=== PATIENT | female | born 1950 | race Caucasian/White ===

== ENCOUNTER 2020-09-19 17:44 | Inpatient (IN) ==
[2020-09-19] MEDS ORDERED: MoRPHine SULFATE 2 MG/ML CARP IV PRN (17:56)
[2020-09-19] MEDS ORDERED: SODIUM CHLORIDE 0.9% 1000ML 1,000 ML IV SCH (18:00)
--- NOTE | 2020-09-19 18:06 | Emergency Department Note ---
History of Present Illness General Chief complaint: Hip Pain Time Seen by Provider: 09/19/20 17:51 History of Present Illness 70-year-old female presents to the ED with a chief complaint of injury to her left hip. The patient states that she was getting up off of her chair and lost her balance causing her to fall onto her left hip. She suffered an abrasion to the left elbow. More significantly, she has a left hip injury with significant pain with any movement. She was transported here by EMS. The injury occurred just prior to arrival. Denies striking her head or loss of consciousness. She denies any other injuries. Symptoms are moderate. Pain is a 1 out of 10 when she is standing still. Home Medications Medication Instructions Recorded Confirmed Type albuterol sulfate 90 mcg/actuation 2 puff INHALATION .Q4-6H 09/19/20 09/19/20 History aerosol inhaler (Ventolin HFA) calcium polycarbophil 625 mg 625 mg PO DAILY 09/19/20 09/19/20 History tablet (FiberCon) ferrous sulfate 325 mg (65 mg 650 mg PO BID 09/19/20 09/19/20 History iron) tablet ibuprofen 200 mg tablet 200 mg PO Q6H PRN 09/19/20 09/19/20 History ipratropium 0.5 mg-albuterol 3 mg 3 ml INHALATION QID 09/19/20 09/19/20 History (2.5 mg base)/3 mL nebulization soln ipratropium 20 mcg-albuterol 100 1 puff INHALATION Q6H 09/19/20 09/19/20 History mcg/actuation mist for inhalation (Combivent Respimat) lisinopril 10 mg tablet 10 mg PO QAM 09/19/20 09/19/20 History lisinopril 5 mg tablet 5 mg PO QAM 09/19/20 09/19/20 History prednisone 5 mg tablet 5 mg PO QAM 09/19/20 09/19/20 History sertraline 100 mg tablet 200 mg PO QAM 09/19/20 09/19/20 History simvastatin 20 mg tablet 20 mg PO HS 09/19/20 09/19/20 History Allergies Allergy/AdvReac Type Severity Reaction Status Date / Time tomato Allergy Mild Mouth Unverified 09/19/20 19:14 Fuzziness and Burning Past Med/Surg History Social History Smoking Status: Current every day smoker Tobacco Type: Cigarettes Feels Safe at Home: Yes Review of Systems A total of 10 systems reviewed and were otherwise negative Physical Exam Vital Signs Vital Signs - 24 hr 09/19/20 18:13 09/19/20 18:43 09/19/20 19:00 Temperature 36.9 C Temperature Source Oral Pulse Rate 107 H 109 H Pulse Rate [Finger] 110 H Pulse Rate from SpO2 Sensor 109 H Respiratory Rate 18 18 20 Blood Pressure 234/139 H Blood Pressure [Left Arm] 221/137 H Blood Pressure Mean 170 Blood Pressure Mean [Left Arm] 165 Pulse Oximetry 95 93 94 Oxygen Delivery Method Room Air Room Air Sepsis Recent Fever Within 48 Hours No Sepsis New/Unexplained Change in Mental Status No Sepsis Action Taken by Nursing No Action Required CONSTITUTIONAL/VITAL SIGNS: Reviewed / noted above. GENERAL: Non-toxic in appearance. INTEGUMENTARY: Warm, dry, and Wanda. HEAD: Normocephalic. EYES: without scleral icterus or trauma. ENT/OROPHARYNX: clear and moist. LYMPHADENOPATHY/NECK: Is supple without lymphadenopathy or meningismus. RESPIRATORY: Clear to auscultation bilaterally. No increased work of breathing. CARDIOVASCULAR: Regular rate and rhythm. GI/ABDOMEN: Soft and nontender. No organomegaly or pulsatile mass. EXTREMITIES: Warm and well perfused. Shortening and external rotation noted to the left leg. Small abrasion to the left elbow. BACK: No CVA tenderness. NEUROLOGICAL: Intact without focal deficits. PSYCHIATRIC: normal affect. MUSCULOSKELETAL: Normally developed with good muscle tone. TRIAGE NURSING DOCUMENTATION REVIEWED. Course Administered Medications Sodium Chloride (Nss 1000ml) 1,000 mls @ 150 mls/hr IV .Q6H40M [facility] Stop: 09/20/20 00:39 Last Admin: 09/19/20 18:40 Dose: 150 mls/hr Documented by: [id number] Morphine Sulfate (Morphine Sulfate 2 Mg/Ml Carp) 2 mg IV Q1H PRN PRN Reason: Moderate Pain (Rating 3,4,5,6) Stop: 10/03/20 17:55 Last Admin: 09/19/20 18:39 Dose: 2 mg Documented by: [id number] Medical Decision Making Differential Diagnosis Differential includes close head injury, intracranial bleed, facial trauma, cervical spine trauma, chest and thoracic trauma, abdominal and intra-abdominal trauma, spine neurologic trauma, extremity trauma. Medical Records Attestation: I reviewed the patient's medical records. Home Medications Current Medication List: was personally reviewed by me Laboratory Data Attestation: I reviewed the patient's lab results. Result diagrams: 09/19/20 Unknown 09/19/20 Unknown Lab Results 09/19/20 09/19/20 09/19/20 Range/Units 18:26 18:26 18:40 WBC (4.8-10.8) K/uL RBC (4.2-5.4) M/uL Hgb (12.0-16.0) g/dL Hct (37-47) % MCV (80-100) fL MCH (25-34) pg MCHC (32-36) g/dL RDW Std Deviation (36.4-46.3) fL RDW Coeff of Ninfa (11.5-14.5) % Plt Count (130-400) K/uL MPV (7.4-10.4) fL Immature Gran % (Auto) % Neut % (Auto) % Lymph % (Auto) % [place] % (Auto) % Eos % (Auto) % Baso % (Auto) % Neut # (Auto) (1.4-6.5) K/uL Lymph # (Auto) (1.2-3.4) K/uL [place] # (Auto) (0.11-0.59) K/uL Eos # (Auto) (0-0.5) K/uL Baso # (Auto) (0-0.2) K/uL Immature Gran # (Auto) (0.00-0.02) K/uL PT (9.0-12.0) Seconds INR (0.9-1.1) APTT (21.0-31.0) Seconds PTT Ratio Sodium (136-145) mmol/L Potassium (3.5-5.1) mmol/L Chloride (98-107) mmol/L Carbon Dioxide (21-32) mmol/L Anion Gap (3-11) BUN (7-18) mg/dl Creatinine (0.6-1.2) mg/dl Est Cr Clr Drug Dosing ml/min Est GFR ( Amer) ml/min Est GFR (Non-Af Amer) ml/min BUN/Creatinine Ratio (10-20) Glucose (70-99) mg/dl Calcium (8.5-10.1) mg/dl Magnesium (1.8-2.4) mg/dl Total Bilirubin (0.2-1) mg/dl AST (15-37) U/L ALT (12-78) U/L Alkaline Phosphatase (45-117) U/L Total Protein (6.4-8.2) gm/dl Albumin (3.4-5.0) gm/dl Globulin (2.5-4.0) gm/dl Albumin/Globulin Ratio (0.9-2) Urine Color Yellow Urine Appearance Clear (Clear) Urine pH 7.5 (4.5-7.5) Ur Specific [place] 1.012 (1.000-1.030) Urine Protein Trace H (Negative) Urine Glucose (UA) Negative (Negative) Urine Ketones Negative (Negative) Urine Blood Trace H (Negative) Urine Nitrite Negative (Negative) Urine Bilirubin Negative (Negative) Urine Urobilinogen Negative (Negative) Ur Leukocyte Esterase Negative (Negative) Urine WBC (Auto) 0 (0-5) /hpf Urine RBC (Auto) 5-10 H (0-4) /hpf U Hyaline Cast (Auto) 0 (0-5) /lpf U Epithel Cells (Auto) 5-10 H (0-5) /lpf Urine Bacteria (Auto) Negative (Negative) COVID-19 Eval Order Covid19 at [facility] SARS-CoV-2 (PCR) NEGATIVE (Negative) Blood Type Antibody Screen 09/19/20 09/19/20 09/19/20 Range/Units 18:51 Unknown Unknown WBC 9.00 (4.8-10.8) K/uL RBC 4.01 L (4.2-5.4) M/uL Hgb 11.8 L (12.0-16.0) g/dL Hct 34.9 L (37-47) % MCV 87.0 (80-100) fL MCH 29.4 (25-34) pg MCHC 33.8 (32-36) g/dL RDW Std Deviation 42.1 (36.4-46.3) fL RDW Coeff of Ninfa 13.1 (11.5-14.5) % Plt Count 295 (130-400) K/uL MPV 9.2 (7.4-10.4) fL Immature Gran % (Auto) 0.4 % Neut % (Auto) 78.1 % Lymph % (Auto) 11.6 % [place] % (Auto) 9.2 % Eos % (Auto) 0.3 % Baso % (Auto) 0.4 % Neut # (Auto) 7.02 H (1.4-6.5) K/uL Lymph # (Auto) 1.04 L (1.2-3.4) K/uL [place] # (Auto) 0.83 H (0.11-0.59) K/uL Eos # (Auto) 0.03 (0-0.5) K/uL Baso # (Auto) 0.04 (0-0.2) K/uL Immature Gran # (Auto) 0.04 H (0.00-0.02) K/uL PT 10.0 (9.0-12.0) Seconds INR 1.0 (0.9-1.1) APTT 24.8 (21.0-31.0) Seconds PTT Ratio 0.9 Sodium (136-145) mmol/L Potassium (3.5-5.1) mmol/L Chloride (98-107) mmol/L Carbon Dioxide (21-32) mmol/L Anion Gap (3-11) BUN (7-18) mg/dl Creatinine (0.6-1.2) mg/dl Est Cr Clr Drug Dosing ml/min Est GFR ( Amer) ml/min Est GFR (Non-Af Amer) ml/min BUN/Creatinine Ratio (10-20) Glucose (70-99) mg/dl Calcium (8.5-10.1) mg/dl Magnesium (1.8-2.4) mg/dl Total Bilirubin (0.2-1) mg/dl AST (15-37) U/L ALT (12-78) U/L Alkaline Phosphatase (45-117) U/L Total Protein (6.4-8.2) gm/dl Albumin (3.4-5.0) gm/dl Globulin (2.5-4.0) gm/dl Albumin/Globulin Ratio (0.9-2) Urine Color Urine Appearance (Clear) Urine pH (4.5-7.5) Ur Specific [place] (1.000-1.030) Urine Protein (Negative) Urine Glucose (UA) (Negative) Urine Ketones (Negative) Urine Blood (Negative) Urine Nitrite (Negative) Urine Bilirubin (Negative) Urine Urobilinogen (Negative) Ur Leukocyte Esterase (Negative) Urine WBC (Auto) (0-5) /hpf Urine RBC (Auto) (0-4) /hpf U Hyaline Cast (Auto) (0-5) /lpf U Epithel Cells (Auto) (0-5) /lpf Urine Bacteria (Auto) (Negative) COVID-19 Eval Order SARS-CoV-2 (PCR) (Negative) Blood Type B Positive Antibody Screen NEGATIVE 09/19/20 Range/Units Unknown WBC (4.8-10.8) K/uL RBC (4.2-5.4) M/uL Hgb (12.0-16.0) g/dL Hct (37-47) % MCV (80-100) fL MCH (25-34) pg MCHC (32-36) g/dL RDW Std Deviation (36.4-46.3) fL RDW Coeff of Ninfa (11.5-14.5) % Plt Count (130-400) K/uL MPV (7.4-10.4) fL Immature Gran % (Auto) % Neut % (Auto) % Lymph % (Auto) % [place] % (Auto) % Eos % (Auto) % Baso % (Auto) % Neut # (Auto) (1.4-6.5) K/uL Lymph # (Auto) (1.2-3.4) K/uL [place] # (Auto) (0.11-0.59) K/uL Eos # (Auto) (0-0.5) K/uL Baso # (Auto) (0-0.2) K/uL Immature Gran # (Auto) (0.00-0.02) K/uL PT (9.0-12.0) Seconds INR (0.9-1.1) APTT (21.0-31.0) Seconds PTT Ratio Sodium 133 L (136-145) mmol/L Potassium 3.6 (3.5-5.1) mmol/L Chloride 101 (98-107) mmol/L Carbon Dioxide 28 (21-32) mmol/L Anion Gap 4.0 (3-11) BUN 10 (7-18) mg/dl Creatinine 0.50 L (0.6-1.2) mg/dl Est Cr Clr Drug Dosing 69.4 ml/min Est GFR ( Amer) 112.1 ml/min Est GFR (Non-Af Amer) 96.7 ml/min BUN/Creatinine Ratio 19.0 (10-20) Glucose 115 H (70-99) mg/dl Calcium 8.9 (8.5-10.1) mg/dl Magnesium 2.2 (1.8-2.4) mg/dl Total Bilirubin 0.3 (0.2-1) mg/dl AST 21 (15-37) U/L ALT 20 (12-78) U/L Alkaline Phosphatase 95 (45-117) U/L Total Protein 7.1 (6.4-8.2) gm/dl Albumin 3.4 (3.4-5.0) gm/dl Globulin 3.7 (2.5-4.0) gm/dl Albumin/Globulin Ratio 0.9 (0.9-2) Urine Color Urine Appearance (Clear) Urine pH (4.5-7.5) Ur Specific [place] (1.000-1.030) Urine Protein (Negative) Urine Glucose (UA) (Negative) Urine Ketones (Negative) Urine Blood (Negative) Urine Nitrite (Negative) Urine Bilirubin (Negative) Urine Urobilinogen (Negative) Ur Leukocyte Esterase (Negative) Urine WBC (Auto) (0-5) /hpf Urine RBC (Auto) (0-4) /hpf U Hyaline Cast (Auto) (0-5) /lpf U Epithel Cells (Auto) (0-5) /lpf Urine Bacteria (Auto) (Negative) COVID-19 Eval Order SARS-CoV-2 (PCR) (Negative) Blood Type Antibody Screen Imaging Data Radiologist's Impression: Chest X-Ray 09/19/20 17:56 SINGLE VIEW CHEST CLINICAL HISTORY: Fall. Left hip fracture. FINDINGS: An AP, portable, supine chest radiograph is obtained. No prior studies are available for comparison at the time of dictation. The cardiomediastinal silhouette is unremarkable noting atherosclerotic calcification of the thoracic aorta. Nonspecific interstitial thickening is likely chronic. No airspace consolidation or large pleural effusion is identified. No pneumothorax is seen. The skeletal structures are osteopenic. There are chronic/healed bilateral rib fractures. Degenerative change and scoliosis is noted in the thoracic spine. IMPRESSION: No acute cardiopulmonary abnormality. ACT 112: Negative or not required by law. Electronically signed by: Grant Roberto M.D. 09/19/2020 6:54 PM Hip X-Ray 09/19/20 17:56 LEFT HIP 2 VIEWS CLINICAL HISTORY: Fall with left hip injury. FINDINGS: AP and crosstable lateral views of the left hip are obtained. No prior studies are available for comparison at the time of dictation. The skeletal structures are osteopenic. There is a comminuted and angulated intertrochanteric fracture of the left femur. There is medial displacement of the lesser trochanter. Overlying soft tissue edema is noted. The visualized left hemipelvis appears intact. Mild degenerative joint space narrowing is seen in the left hip. Atherosclerotic calcification is noted in the popliteal artery. IMPRESSION: Intertrochanteric fracture of the left femur as above. Electronically signed by: Grant Roberto M.D. 09/19/2020 6:53 PM ECG Data Attestation: I personally reviewed and interpreted this ECG as follows: Additional Comments: Twelve-lead EKG: Per my interpretation there is a sinus tach at a rate of 106. No ST elevation. Normal QTC. No PVCs. MDM Narrative Patient presents to the ED after a fall. Left hip deformity suggestive of fracture. Twelve-lead EKG shows a sinus tach at a rate of 106. CBC is unremarkable. Chemistry panel was unremarkable. Urine did not show infection. X-ray shows a left anterior trochanteric hip fracture. Chest x-ray was negative for acute disease. EKG shows a normal sinus rhythm. The patient was given a little morphine IV for her pain. She was also given some IV fluids. She will be seen by the hospitalist for further inpatient evaluation and care. Impression & Plan Fall, Closed fracture of left hip Discharge Plan Visit Data Chief Complaint: Hip Pain ED Provider: Timoteo Baker Discharge Problem: Fall, Closed fracture of left hip Patient Disposition: Being Evaluated by Hospitalist Forms Stand Alone Forms: My [facility] Prescriptions Prescriptions: No Action sertraline 100 mg tablet 200 mg PO QAM RF: 0 prednisone 5 mg tablet 5 mg PO QAM RF: 0 albuterol sulfate [Ventolin HFA] 90 mcg/actuation HFA aerosol inhaler 2 puff INHALATION .Q4-6H RF: 0 ipratropium-albuterol 0.5 mg-3 mg(2.5 mg base)/3 mL Solution For Nebulization 3 ml INHALATION QID RF: 0 simvastatin 20 mg tablet 20 mg PO HS RF: 0 ferrous sulfate 325 mg (65 mg iron) Tablet 650 mg PO BID RF: 0 lisinopril 10 mg tablet 10 mg PO QAM RF: 0 calcium polycarbophil [FiberCon] 625 mg Tablet 625 mg PO DAILY RF: 0 lisinopril 5 mg tablet 5 mg PO QAM RF: 0 Combivent Respimat 20-100 mcg/actuation Mist 1 puff INHALATION Q6H RF: 0 ibuprofen 200 mg Tablet 200 mg PO Q6H PRN (Reason: Pain) RF: 0 Referrals Referrals: PCP,NO [Physician] -
[2020-09-19 18:29] LABS: Basophils # (auto) 0.04 K/uL (0-0.2); Basophils % (auto) 0.4 %; Eosinophils # (auto) 0.03 K/uL (0-0.5); Eosinophils % (auto) 0.3 %; Hematocrit (blood only) 34.9 % (37-47); Hemoglobin 11.8 g/dL (12.0-16.0); Immature Granulocytes # (auto) 0.04 K/uL (0.00-0.02); Immature Granulocytes % (auto) 0.4 %; Lymphocytes # (auto) 1.04 K/uL (1.2-3.4); Lymphocytes % (auto) 11.6 %; Mean Corpuscular Hemoglobin 29.4 pg (25-34); Mean Corpuscular Hgb Conc 33.8 g/dL (32-36); Mean Platelet Volume 9.2 fL (7.4-10.4); Monocytes # (auto) 0.83 K/uL (0.11-0.59); Monocytes % (auto) 9.2 %; Neutrophils # (auto) 7.02 K/uL (1.4-6.5); Neutrophils % (auto) 78.1 %; Platelet Count 295 K/uL (130-400); RDW Coefficient of Variation 13.1 % (11.5-14.5); RDW Standard Deviation 42.1 fL (36.4-46.3); Red Blood Count 4.01 M/uL (4.2-5.4)
[2020-09-19 18:47] LABS: Partial Thromboplastin Ratio 0.9; Partial Thromboplastin Time 24.8 Seconds (21.0-31.0)
[2020-09-19 18:50] LABS: Albumin Level 3.4 gm/dl (3.4-5.0); Calcium 8.9 mg/dl (8.5-10.1); Creatinine Clr Calc Pharmacy 69.4 ml/min; Est GFR (African American) 112.1 ml/min; Est GFR (Non-African American) 96.7 ml/min; Potassium 3.6 mmol/L (3.5-5.1)
[2020-09-19 18:52] LABS: Albumin Globulin Ratio 0.9 (0.9-2); Bilirubin,Total 0.3 mg/dl (0.2-1); Globulin 3.7 gm/dl (2.5-4.0); Total Protein 7.1 gm/dl (6.4-8.2)
--- NOTE | 2020-09-19 18:54 | XRay Report ---
LEFT HIP 2 VIEWS CLINICAL HISTORY: Fall with left hip injury. FINDINGS: AP and crosstable lateral views of the left hip are obtained. No prior studies are availabl e for comparison at the time of dictation. The skeletal structures are osteopenic. There is a comminu barron and angulated intertrochanteric fracture of the left femur. There is medial displacement of the l priscilla trochanter. Overlying soft tissue edema is noted. The visualized left hemipelvis appears intact . Mild degenerative joint space narrowing is seen in the left hip. Atherosclerotic calcification is n oted in the popliteal artery. IMPRESSION: Intertrochanteric fracture of the left femur as above. Electronically signed by: Grant Roberto M.D. 09/19/2020 6:53 PM
--- NOTE | 2020-09-19 18:55 | XRay Report ---
SINGLE VIEW CHEST CLINICAL HISTORY: Fall. Left hip fracture. FINDINGS: An AP, portable, supine chest radiograph is obtained. No prior studies are available for co mparison at the time of dictation. The cardiomediastinal silhouette is unremarkable noting atheroscl erotic calcification of the thoracic aorta. Nonspecific interstitial thickening is likely chronic. No airspace consolidation or large pleural effusion is identified. No pneumothorax is seen. The skeleta l structures are osteopenic. There are chronic/healed bilateral rib fractures. Degenerative change an d scoliosis is noted in the thoracic spine. IMPRESSION: No acute cardiopulmonary abnormality. ACT 112: Negative or not required by law. Electronically signed by: Grant Roberto M.D. 09/19/2020 6:54 PM
[2020-09-19 19:02] LABS: Appearance Urine Clear (Clear); Bacteria Urine Automated Negative (Negative); Bilirubin Urine Negative (Negative); Blood Urine Trace (Negative); Cast Urine Automated 0 /lpf (0-5); Color Urine Yellow; Glucose Urine UA Negative (Negative); Ketones Urine Negative (Negative); Leukocyte Esterase Urine Negative (Negative); Nitrite Urine Negative (Negative); Specific Gravity Urine 1.012 (1.000-1.030); Urobilinogen Urine Negative (Negative); WBC Urine Automated 0 /hpf (0-5); pH Urine 7.5 (4.5-7.5)
[2020-09-19 19:07] LABS: Protein Urine Trace (Negative)
[2020-09-19] MEDS ORDERED: LABETALOL HCL IV 5 MG/ML 20ML IV STA (19:27)
[2020-09-19] MEDS ORDERED: POTASSIUM CHLORIDE CRTAB 20 MEQ TABCR PO STA (19:38)
[2020-09-19 19:50] LABS: Magnesium 2.2 mg/dl (1.8-2.4)
[2020-09-19] MEDS ORDERED: METOPROLOL TARTRATE 1 MG/ML VIAL IV STA (19:52)
[2020-09-19] MEDS ORDERED: lisinopril 5 MG TAB PO ONE (20:54)
[2020-09-19] MEDS ORDERED: HYDROmorphone INJ 0.5 MG/0.5 ML SYR IV STA (21:23)
--- NOTE | 2020-09-19 21:32 | History & Physical Report ---
Date of Service September 19, 2020 Assessment & Plan (1) Closed fracture of left hip: Plan: Secondary to traumatic fall hypertensive urgency secondary to pain COPD, at baseline rheumatoid arthritis on on chronic prednisone Rx chronic hyponatremia hyperlipidemia on statin Rx chronic left hallux valgus/painful left great toe bunion, surgery offered by [facility] database coordinator on outpatient visit last month Steroid-induced hyperglycemia rule out DM ongoing tobacco abuse Medical telemetry given uncontrolled BP Analgesia, titrate home lisinopril Orthopedics consult Re: Left hip fracture Patient and family inquiring if surgery for progressively painful bunion deformity of left foot can be performed by orthopedic service at the same time as left hip fracture repair, if so warranted. No medical contraindication to surgery if recommended by Orthopedics and patient/family agreeable to attendant procedural benefits and risks. Acceptable risk for medical complications. Check hemoglobin A1c Nicotine patch as needed DVT prophylaxis with SCDs Re: Possible surgery Recommend pharmacologic anticoagulation once bleeding risk is deemed to be minimal and negligible pending Orthopedics evaluation. Full code Patient daughter requesting updates from providers. Ms. Mindy Del Real, contact #[phone]. Text document was generated using [employer] voice recognition software. It may contain grammatical or spelling errors. Kindly contact undersigned for clarification of any documentation item in question. History of Present Illness Chief Complaint: Fall, left hip pain Primary Care Provider: Ramona العراقي PA-C History obtained from patient, family, and records. Medical history significant for hypertension, COPD, rheumatoid arthritis on on chronic prednisone Rx, chronic hyponatremia, hyperlipidemia, chronic left hallux valgus/left great toe bunion, ongoing tobacco abuse. Patient was getting off her chair at home when she lost balance causing her to fall down on her left hip. Subsequent abrasion to left elbow. Achy left hip injury. Patient unable to get up. No head trauma, no chest pain, no S OB, no LOC. Medical History as above Surgical History : Cholecystectomy, BTL Family History : IBD, SLE, fibromyalgia Personal/Social history : Half pack daily, occasional EtOH intake, retired [employer] Baseline Functionality : Still able to do housework at home without rest/exertional chest pain or unusual S OB prior to injury Allergies Allergy/AdvReac Type Severity Reaction Status Date / Time tomato Allergy Mild Mouth Unverified 09/19/20 19:14 Fuzziness and Burning Home Medications Medication Instructions Recorded Confirmed Type albuterol sulfate 90 mcg/actuation 2 puff INHALATION .Q4-6H 09/19/20 09/19/20 History aerosol inhaler (Ventolin HFA) calcium polycarbophil 625 mg 625 mg PO DAILY 09/19/20 09/19/20 History tablet (FiberCon) ferrous sulfate 325 mg (65 mg 650 mg PO BID 09/19/20 09/19/20 History iron) tablet ibuprofen 200 mg tablet 200 mg PO Q6H PRN 09/19/20 09/19/20 History ipratropium 0.5 mg-albuterol 3 mg 3 ml INHALATION QID 09/19/20 09/19/20 History (2.5 mg base)/3 mL nebulization soln ipratropium 20 mcg-albuterol 100 1 puff INHALATION Q6H 09/19/20 09/19/20 History mcg/actuation mist for inhalation (Combivent Respimat) lisinopril 10 mg tablet 10 mg PO QAM 09/19/20 09/19/20 History lisinopril 5 mg tablet 5 mg PO QAM 09/19/20 09/19/20 History prednisone 5 mg tablet 5 mg PO QAM 09/19/20 09/19/20 History sertraline 100 mg tablet 200 mg PO QAM 09/19/20 09/19/20 History simvastatin 20 mg tablet 20 mg PO HS 09/19/20 09/19/20 History Past Med/Surg History Social History Smoking Status: Current every day smoker Tobacco Type: Cigarettes Cigarettes Per Day: 1/2 PPD; Second Hand Exposure: Yes; Do You Dip or Chew Tobacco: No; Tobacco Cessation Education Requested by Patient: No Hx Alcohol Use: Yes Hx Substance Use: No Preferred Language: Latvian Communication Ability: Effective Dyslexia Teacher Required: No Beliefs That Will Affect Care: None Current Living Situation: Spouse and Family Current Living Situation Comment: Lives with and daughter Other Information That Helps Us Care for You: No Feels Safe at Home: Yes Safety Concerns: Feels Safe At This Time Assistive Devices: Oxygen - Continuous Review of Systems Review of Systems: As per HPI, all 10 systems reviewed, all other ROS negative Physical Exam Physical Exam: GENERAL: uncomfortable, no respiratory distress SKIN: Normal color, warm HEENT: [place] palpebral conjunctivae, no ptosis, dry buccal mucosa NECK : Supple, no tenderness CHEST : Decreased breath sounds, no tenderness HEART : RRR, no obvious murmurs ABDOMEN: no distention, nontender EXTREMITIES : Left hip tenderness, left hallux valgus with tender left bunion left great toe, no other conspicuous deformities noted NEUROLOGIC : Coherent, no facial asymmetry, no other gross focality Results & Data Results & Data ([facility]) Vital Signs (Past 12 Hours) Vital Signs Temp Pulse Pulse Resp BP BP Pulse Ox 09/19/20 20:48 96 H 20 187/123 H 93 09/19/20 20:04 122 H 190/120 H 09/19/20 20:00 113 H 19 190/120 H 93 09/19/20 19:30 112 H 24 171/122 H 94 09/19/20 19:00 109 H 20 94 09/19/20 18:43 110 H 18 221/137 H 93 09/19/20 18:13 36.9 C 107 H 18 234/139 H 95 Laboratory Results Laboratory Results WBC 9.00 K/uL (4.8-10.8) 09/19/20 Unknown RBC 4.01 M/uL (4.2-5.4) L 09/19/20 Unknown Hgb 11.8 g/dL (12.0-16.0) L 09/19/20 Unknown Hct 34.9 % (37-47) L 09/19/20 Unknown MCV 87.0 fL (80-100) 09/19/20 Unknown MCH 29.4 pg (25-34) 09/19/20 Unknown MCHC 33.8 g/dL (32-36) 09/19/20 Unknown RDW Std Deviation 42.1 fL (36.4-46.3) 09/19/20 Unknown RDW Coeff of Ninfa 13.1 % (11.5-14.5) 09/19/20 Unknown Plt Count 295 K/uL (130-400) 09/19/20 Unknown MPV 9.2 fL (7.4-10.4) 09/19/20 Unknown Immature Gran % (Auto) 0.4 % 09/19/20 Unknown Neut % (Auto) 78.1 % 09/19/20 Unknown Lymph % (Auto) 11.6 % 09/19/20 Unknown [place] % (Auto) 9.2 % 09/19/20 Unknown Eos % (Auto) 0.3 % 09/19/20 Unknown Baso % (Auto) 0.4 % 09/19/20 Unknown Neut # (Auto) 7.02 K/uL (1.4-6.5) H 09/19/20 Unknown Lymph # (Auto) 1.04 K/uL (1.2-3.4) L 09/19/20 Unknown [place] # (Auto) 0.83 K/uL (0.11-0.59) H 09/19/20 Unknown Eos # (Auto) 0.03 K/uL (0-0.5) 09/19/20 Unknown Baso # (Auto) 0.04 K/uL (0-0.2) 09/19/20 Unknown Immature Gran # (Auto) 0.04 K/uL (0.00-0.02) H 09/19/20 Unknown PT 10.0 Seconds (9.0-12.0) 09/19/20 Unknown INR 1.0 (0.9-1.1) 09/19/20 Unknown APTT 24.8 Seconds (21.0-31.0) 09/19/20 Unknown PTT Ratio 0.9 09/19/20 Unknown Sodium 133 mmol/L (136-145) L 09/19/20 Unknown Potassium 3.6 mmol/L (3.5-5.1) 09/19/20 Unknown Chloride 101 mmol/L (98-107) 09/19/20 Unknown Carbon Dioxide 28 mmol/L (21-32) 09/19/20 Unknown Anion Gap 4.0 (3-11) 09/19/20 Unknown BUN 10 mg/dl (7-18) 09/19/20 Unknown Creatinine 0.50 mg/dl (0.6-1.2) L 09/19/20 Unknown Est Cr Clr Drug Dosing 69.4 ml/min 09/19/20 Unknown Est GFR ( Amer) 112.1 ml/min 09/19/20 Unknown Est GFR (Non-Af Amer) 96.7 ml/min 09/19/20 Unknown BUN/Creatinine Ratio 19.0 (10-20) 09/19/20 Unknown Glucose 115 mg/dl (70-99) H 09/19/20 Unknown Calcium 8.9 mg/dl (8.5-10.1) 09/19/20 Unknown Magnesium 2.2 mg/dl (1.8-2.4) 09/19/20 Unknown Total Bilirubin 0.3 mg/dl (0.2-1) 09/19/20 Unknown AST 21 U/L (15-37) 09/19/20 Unknown ALT 20 U/L (12-78) 09/19/20 Unknown Alkaline Phosphatase 95 U/L (45-117) 09/19/20 Unknown Total Protein 7.1 gm/dl (6.4-8.2) 09/19/20 Unknown Albumin 3.4 gm/dl (3.4-5.0) 09/19/20 Unknown Globulin 3.7 gm/dl (2.5-4.0) 09/19/20 Unknown Albumin/Globulin Ratio 0.9 (0.9-2) 09/19/20 Unknown Urine Color Yellow 09/19/20 18:40 Urine Appearance Clear (Clear) 09/19/20 18:40 Urine pH 7.5 (4.5-7.5) 09/19/20 18:40 Ur Specific [place] 1.012 (1.000-1.030) 09/19/20 18:40 Urine Protein Trace (Negative) H 09/19/20 18:40 Urine Glucose (UA) Negative (Negative) 09/19/20 18:40 Urine Ketones Negative (Negative) 09/19/20 18:40 Urine Blood Trace (Negative) H 09/19/20 18:40 Urine Nitrite Negative (Negative) 09/19/20 18:40 Urine Bilirubin Negative (Negative) 09/19/20 18:40 Urine Urobilinogen Negative (Negative) 09/19/20 18:40 Ur Leukocyte Esterase Negative (Negative) 09/19/20 18:40 Urine WBC (Auto) 0 /hpf (0-5) 09/19/20 18:40 Urine RBC (Auto) 5-10 /hpf (0-4) H 09/19/20 18:40 U Hyaline Cast (Auto) 0 /lpf (0-5) 09/19/20 18:40 U Epithel Cells (Auto) 5-10 /lpf (0-5) H 09/19/20 18:40 Urine Bacteria (Auto) Negative (Negative) 09/19/20 18:40 COVID-19 Eval Order Covid19 at [facility] 09/19/20 18:26 SARS-CoV-2 (PCR) NEGATIVE (Negative) 09/19/20 18:26 Blood Type B Positive 09/19/20 18:51 Antibody Screen NEGATIVE 09/19/20 18:51 Impressions Chest X-Ray 09/19/20 17:56 SINGLE VIEW CHEST CLINICAL HISTORY: Fall. Left hip fracture. FINDINGS: An AP, portable, supine chest radiograph is obtained. No prior studies are available for comparison at the time of dictation. The cardiomediastinal silhouette is unremarkable noting atherosclerotic calcification of the thoracic aorta. Nonspecific interstitial thickening is likely chronic. No airspace consolidation or large pleural effusion is identified. No pneumothorax is seen. The skeletal structures are osteopenic. There are chronic/healed bilateral rib fractures. Degenerative change and scoliosis is noted in the thoracic spine. IMPRESSION: No acute cardiopulmonary abnormality. ACT 112: Negative or not required by law. Electronically signed by: Grant Roberto M.D. 09/19/2020 6:54 PM Hip X-Ray 09/19/20 17:56 LEFT HIP 2 VIEWS CLINICAL HISTORY: Fall with left hip injury. FINDINGS: AP and crosstable lateral views of the left hip are obtained. No prior studies are available for comparison at the time of dictation. The skeletal structures are osteopenic. There is a comminuted and angulated intertrochanteric fracture of the left femur. There is medial displacement of the lesser trochanter. Overlying soft tissue edema is noted. The visualized left hemipelvis appears intact. Mild degenerative joint space narrowing is seen in the left hip. Atherosclerotic calcification is noted in the popliteal artery. IMPRESSION: Intertrochanteric fracture of the left femur as above. Electronically signed by: Grant Roberto M.D. 09/19/2020 6:53 PM Diagnostic Findings EKG as per my interpretation: Rate 105, sinus tachycardia, normal axis, incomplete RBBB, anterolateral infarct Code Status & VTE Plan VTE Prophylaxis Plan VTE Prophylaxis will be ordered: Yes
[2020-09-19 21:58] LABS: Thyroid Stimulating Hormone 1.27 uIu/ml (0.300-4.500)
[2020-09-19] MEDS ORDERED: bisacodyL 10 MG SUPP PR PRN (22:53)
[2020-09-19] MEDS ORDERED: NALOXONE HCL 0.4 MG/1 ML VIAL/CARP IV PRN (22:53)
[2020-09-19] MEDS ORDERED: MAGNESIUM HYDROXIDE SUSP 30 ML UDC PO PRN (22:53)
[2020-09-19] MEDS ORDERED: XOPENEX/ATROVENT 1.25mg/0.5MG NEB COMBO NEB PRN (22:53)
[2020-09-19] MEDS ORDERED: HYDROmorphone INJ 0.5 MG/0.5 ML SYR IV PRN (22:53)
[2020-09-19] MEDS ORDERED: oxyCODONE HCL IR 5 MG TAB (IMMEDIATE RELEASE) PO PRN (22:53)
[2020-09-19] MEDS ORDERED: ACETAMINOPHEN 325 MG TAB PO PRN ×2 (22:53)
[2020-09-19] MEDS ORDERED: PROMETHAZINE HCL 6.25 MG in SODIUM CHLORIDE 0.9% 50 ML IV PRN (22:53)
[2020-09-19] MEDS ORDERED: lisinopril 5 MG TAB PO STA (23:21)
[2020-09-20] MEDS ORDERED: POTASSIUM CHLORIDE 40 MEQ in SODIUM CHLORIDE 0.9% 1000ML 1,000 ML IV SCH (00:15)
[2020-09-20] MEDS: lisinopril 20 MG TAB PO SCH (05:13)
[2020-09-20] MEDS: IPRATROPIUM BROMIDE NEB SOLN 0.02% 2.5 ML VIAL INH PRN (05:18)
[2020-09-20] MEDS: LEVALBUTEROL 1.25MG/0.5ML NEB INH PRN (05:19)
[2020-09-20 06:58] LABS: Basophils # (auto) 0.03 K/uL (0-0.2); Basophils % (auto) 0.3 %; Hematocrit (blood only) 33.4 % (37-47); Hemoglobin 11.1 g/dL (12.0-16.0); Immature Granulocytes # (auto) 0.02 K/uL (0.00-0.02); Immature Granulocytes % (auto) 0.2 %; Lymphocytes # (auto) 0.79 K/uL (1.2-3.4); Lymphocytes % (auto) 7.7 %; Mean Corpuscular Hemoglobin 29.4 pg (25-34); Mean Corpuscular Hgb Conc 33.2 g/dL (32-36); Mean Corpuscular Volume 88.4 fL (80-100); Mean Platelet Volume 8.8 fL (7.4-10.4); Monocytes # (auto) 1.14 K/uL (0.11-0.59); Monocytes % (auto) 11.1 %; Neutrophils # (auto) 8.26 K/uL (1.4-6.5); Neutrophils % (auto) 80.7 %; Platelet Count 267 K/uL (130-400); RDW Coefficient of Variation 13.1 % (11.5-14.5); RDW Standard Deviation 42.5 fL (36.4-46.3); Red Blood Count 3.78 M/uL (4.2-5.4); White Blood Count 10.24 K/uL (4.8-10.8)
[2020-09-20 07:43] LABS: BUN Creatinine Ratio 36.9 (10-20); Creatinine Clr Calc Pharmacy 93.7 ml/min; Est GFR (African American) 123.7 ml/min; Est GFR (Non-African American) 106.8 ml/min; Potassium 4.7 mmol/L (3.5-5.1)
[2020-09-20] MEDS: FERROUS SULFATE 325 MG TAB PO SCH ×2 (08:18→17:35)
[2020-09-20] MEDS: predniSONE 5 MG TAB PO SCH (08:18)
[2020-09-20] MEDS: SERTRALINE HCL 100 MG TABLET PO SCH (08:18)
[2020-09-20] MEDS ORDERED: LABETALOL HCL IV 5 MG/ML 20ML IV STA (08:54)
[2020-09-20] MEDS ORDERED: lisinopril 20 MG TAB PO SCH (09:00)
--- NOTE | 2020-09-20 09:38 | Electrocardiogram Report ---
Test Reason : Blood Pressure : / mmHG Vent. Rate : 106 BPM Atrial Rate : 106 BPM P-R Int : 176 ms QRS Dur : 088 ms QT Int : 356 ms P-R-T Axes : 082 063 076 degrees QTc Int : 472 ms Poor data quality, interpretation may be adversely affected Sinus tachycardia Right atrial enlargement Anterolateral infarct , age undetermined Abnormal ECG No previous ECGs available Confirmed by Magdy Mora ([id number]) on 09/20/2020 9:37:46 AM Referred By: REFERRED SELF Confirmed By:Magdy Mora
[2020-09-20] MEDS ORDERED: ceFAZolin 1000MG 1,000 MG/7.5 ML SYR IV SCH (10:00)
[2020-09-20] MEDS ORDERED: fentaNYL citrate 100 MCG/2 ML VIAL ONE ×2 (10:05)
[2020-09-20] MEDS ORDERED: PROPOFOL IV EMULSION 10 MG/ML 20 ML VIAL IV ONE (10:05)
[2020-09-20] MEDS ORDERED: DEXAMETHASONE SOD INJ 4 MG/ML VIAL ONE (10:05)
[2020-09-20] MEDS ORDERED: ONDANSETRON INJ 2 MG/ML 2 ML VIAL ONE (10:05)
[2020-09-20] MEDS ORDERED: SUCCINYLCHOLINE CHLORIDE 20 MG/ML 10 ML VIAL IV ONE (10:05)
[2020-09-20] MEDS ORDERED: CISATRACURIUM BESYLATE IV SOLN 2 MG/ML 10 ML VIAL IV ONE ×2 (10:09→10:10)
--- NOTE | 2020-09-20 10:28 | Anesthesiology Consultation ---
Date of Service September 20, 2020 Assessment & Plan Chart Review Chart Review: Acceptable Risk for Surgery and Patient NOT seen in Pre Admission Testing Consults Requested none ASA ASA4 Proposed Anesthesia Anesthesia Type: General Risk / Benefits Reviewed With: PT / POA / Parent / Guardian, Accepts Plan and Informed Consent Obtained Additional Comments: covid Test negative History Surgery Operation Date: 09/20/20 11:00 Proposed Procedures p Intramedullary Herrera Femur(Left) - Sid Chambers MD Height/Weight Height: 4 ft 11 in Weight: 47.2 kg Allergies Allergy/AdvReac Type Severity Reaction Status Date / Time tomato Allergy Mild Mouth Unverified 09/19/20 19:14 Fuzziness and Burning Medications Home Medications Medication Instructions Recorded Confirmed Last Taken albuterol sulfate 90 mcg/actuation 2 puff INHALATION .Q4-6H 09/19/20 09/19/20 09/19/20 aerosol inhaler (Ventolin HFA) calcium polycarbophil 625 mg 625 mg PO DAILY 09/19/20 09/19/20 Unknown tablet (FiberCon) ferrous sulfate 325 mg (65 mg 650 mg PO BID 09/19/20 09/19/20 09/19/20 iron) tablet ibuprofen 200 mg tablet 200 mg PO Q6H PRN 09/19/20 09/19/20 09/19/20 800 mg ipratropium 0.5 mg-albuterol 3 mg 3 ml INHALATION QID 09/19/20 09/19/20 09/19/20 (2.5 mg base)/3 mL nebulization soln ipratropium 20 mcg-albuterol 100 1 puff INHALATION Q6H 09/19/20 09/19/20 09/19/20 mcg/actuation mist for inhalation (Combivent Respimat) lisinopril 10 mg tablet 10 mg PO QAM 09/19/20 09/19/20 09/19/20 lisinopril 5 mg tablet 5 mg PO QAM 09/19/20 09/19/20 09/19/20 prednisone 5 mg tablet 5 mg PO QAM 09/19/20 09/19/20 09/19/20 sertraline 100 mg tablet 200 mg PO QAM 09/19/20 09/19/20 09/19/20 simvastatin 20 mg tablet 20 mg PO HS 09/19/20 09/19/20 09/18/20 Active Medications Generic Name Dose Route Start Last Admin Trade Name Paulieq PRN Reason Stop Dose Admin Ferrous Sulfate 325 mg 09/20/20 09:00 09/20/20 08:18 Ferrous Sulfate 325 Mg Tab PO 10/20/20 08:59 325 mg [id number] BRANDON Administration Hydromorphone HCl 0.5 mg 09/19/20 22:53 09/20/20 00:44 Hydromorphone Inj 0.5 Mg/0.5 Ml Syr IV 10/03/20 22:52 0.5 mg Q3H PRN Administration Pain (6,7,8,9,10) Potassium Chloride 40 meq/ 1,020 mls @ 50 mls/hr 09/20/20 00:15 09/20/20 00:12 Sodium Chloride IV 10/20/20 00:14 50 mls/hr .[id number] BRANDON Administration Ipratropium [place] 0.5 mg 09/19/20 22:53 09/20/20 05:18 Ipratropium [place] Neb Soln 0.02% 2.5 Ml Vial INH 10/19/20 22:52 0.5 mg Q4H PRN Administration sob/wheezing Levalbuterol HCl 1.25 mg 09/19/20 22:53 09/20/20 05:19 Levalbuterol 1.25mg/0.5ml Neb INH 10/19/20 22:52 1.25 mg Q4H PRN Administration sob/wheezing Lisinopril 20 mg 09/20/20 05:00 09/20/20 05:13 Lisinopril 20 Mg Tab PO 10/20/20 04:59 20 mg QAM BRANDON Administration Prednisone 5 mg 09/20/20 09:00 09/20/20 08:18 Prednisone 5 Mg Tab PO 10/20/20 08:59 5 mg QAM BRANDON Administration Sertraline HCl 200 mg 09/20/20 09:00 09/20/20 08:18 Sertraline Hcl 100 Mg Tablet PO 10/20/20 08:59 200 mg QAM BRANDON Administration NPO Date Last Intake of Fluids: 09/20/20 Time Last Intake of Fluids: 06:30 Date Last Intake of Solids: 09/19/20 Time Last Intake of Solids: 18:00 Exercise / Class Metabolic Activity III < 4 Walking/Shop/Light housework Past Anesthesia History No Hx of Anesthesia Complications and No Family Hx of Anesthesia Complications History of PONV No Hx of PONV and No Hx of Motion Sickness Social History Smoking Status: Current every day smoker tobacco type: cigarettes Smoking cigarettes per day: 1/2 PPD Do You Dip or Chew Tobacco: No Hx Alcohol Use: Yes alcohol intake frequency: holidays/special occasions only Hx Substance Use: No substance use type: does not use Physical Exam Vital Signs Last Vital Signs Temp 36.7 C 09/20/20 08:28 Pulse 95 H 09/20/20 08:28 Resp 18 09/20/20 08:28 BP 181/105 H 09/20/20 08:28 Pulse Ox 97 09/20/20 08:28 Constitutional + cachectic ENMT Mouth: + dentition abnormality, + poor dentition and + small oral opening Thyromental Distance: < 3.5 Finger Breadths Mallampati Class: II Neck normal visual inspection and trachea midline; neck extension not limited Respiratory + uses accessory muscles Auscultation: + diminished lung sounds Cardiovascular Rate/Rhythm: regular rate and regular rhythm Heart Sounds: no murmur Vessels: no carotid bruit Musculoskeletal Spine: normal cervical ROM Extremities: + limited ROM of extremities; + extremities abnormal to inspection (left leg) left leg Neurologic moves all extremities Motor/Sensory: no sensory deficit Psychiatric Orientation: alert and oriented x 3 Testing Laboratory Results 09/20/20 06:40 09/20/20 06:40 PT 10.0 Seconds (9.0-12.0) 09/19/20 Unknown INR 1.0 (0.9-1.1) 09/19/20 Unknown APTT 24.8 Seconds (21.0-31.0) 09/19/20 Unknown Urine Color Yellow 09/19/20 18:40 Urine Appearance Clear (Clear) 09/19/20 18:40 Urine pH 7.5 (4.5-7.5) 09/19/20 18:40 Ur Specific [place] 1.012 (1.000-1.030) 09/19/20 18:40 Urine Protein Trace (Negative) H 09/19/20 18:40 Urine Glucose (UA) Negative (Negative) 09/19/20 18:40 Urine Ketones Negative (Negative) 09/19/20 18:40 Urine Nitrite Negative (Negative) 09/19/20 18:40 Ur Leukocyte Esterase Negative (Negative) 09/19/20 18:40 Urine WBC (Auto) 0 /hpf (0-5) 09/19/20 18:40 Urine RBC (Auto) 5-10 /hpf (0-4) H 09/19/20 18:40 U Hyaline Cast (Auto) 0 /lpf (0-5) 09/19/20 18:40 U Epithel Cells (Auto) 5-10 /lpf (0-5) H 09/19/20 18:40 Urine Bacteria (Auto) Negative (Negative) 09/19/20 18:40 Blood Type B Positive 09/19/20 18:51 Antibody Screen NEGATIVE 09/19/20 18:51 Electrocardiogram Date: 09/19/20 Findings: + ST @ (at 106;[place];? old anterolat. [place] ,age ?) Chest X-Ray Date: 09/19/20 Findings: + NAD, + atherosclerosis of thoracic aorta and + other (C/W COPD)
--- NOTE | 2020-09-20 10:30 | History & Physical Bridge Note ---
Date of Service September 20, 2020 History & Physical Bridge Note I have examined the patient, reviewed the History & Physical and in the interval since the performance of the History & Physical I have noted the following changes of clinical significance: no changes noted See full dictated orthopedic consultation. Patient had been seen and examined and has a left intertrochanteric hip fracture. I discussed risk benefits visual outcomes and expectations for surgical treatment with both her and the family. We will plan for: 1 left intertrochanteric hip nail
[2020-09-20] MEDS ORDERED: BUPIVACAINE 0.5 % 5 MG/1 ML MPF 30ML VIAL ONE (10:43)
[2020-09-20] MEDS ORDERED: ESMOLOL HCL INJ 10 MG/ML 10ML VIAL IV ONE (10:50)
--- NOTE | 2020-09-20 10:54 | Consultation Report ---
Orthopedic inpatient consultation, special attention to left hip fracture. SUBJECTIVE: This is a 70-year-old female who sustained a traumatic fall when she fell off of a stool , she had complaints of pain in the left hip. [facility] She has complaints of pain in the left hip region. Denies other complaints. PAST MEDICAL HISTORY: Includes COPD, history of rheumatoid arthritis on chronic prednisone, history of a longstanding tobacco abuse for approximately 40 years. Also, history of a left bunion, which wa s in the process of being evaluated. MEDICATIONS: Albuterol, calcium, iron, ibuprofen, ipratropium bromide, lisinopril, prednisone 5 mg d aily, sertraline, simvastatin. PHYSICAL EXAMINATION: Left leg exam is short and externally rotated. She has pain with log roll of the left hip. She has no open injuries. She has a palpable dorsalis pedis pulse. She can flex and extend the ankle, but exam is limited secondary to discomfort. I reviewed an AP and lateral of the l eft hip. It does show a 3-part intertrochanteric hip fracture with varus displacement. Osteoporotic bone is noted with a very wide canal in the femur. Lesser trochanter is fractured. ASSESSMENT: A 70-year-old female with: 1. Left 3-part intertrochanteric hip fracture. 2. Osteoporosis. 3. Significant tobacco abuse. PLAN: I discussed findings of treatment with both the patient and the patient's daughter, Mindy Del Real. We discussed risks, benefits, and outcomes and expectations for surgical treatment. We discussed ot her options as well, which include bed rest. RECOMMENDATIONS: Left intertrochanteric hip nail. Risks and benefits were discussed include but not limited to infection, stiffness, loss of motion, chaudhari rdware cutout, nonunion, decreased ambulatory status, anesthesia complications, , etc. The ayo ent and family are both agreeable and wished to proceed with surgical intervention. We will continue SCDs for now and appropriate anticoagulation after surgery. Job ID: [id number]
[2020-09-20] MEDS ORDERED: ePHEDrine sulfate 50 MG/ML SYR ONE (11:02)
[2020-09-20] MEDS ORDERED: PROMETHAZINE HCL 12.5 MG in SODIUM CHLORIDE 0.9% 50 ML IV PRN (11:30)
[2020-09-20] MEDS ORDERED: fentaNYL citrate 100 MCG/2 ML VIAL IV PRN (11:30)
[2020-09-20] MEDS ORDERED: ePHEDrine sulfate 50 MG/ML AMP IV PRN (11:30)
[2020-09-20] MEDS ORDERED: NALOXONE HCL 0.4 MG/1 ML VIAL/CARP IV PRN ×2 (11:30→12:09)
[2020-09-20] MEDS ORDERED: ATROPINE SULFATE 0.1 MG/ML 10ML SYR IV PRN (11:30)
[2020-09-20] MEDS ORDERED: FLUMAZENIL 0.1 MG/1 ML 10 ML VIAL IV PRN (11:30)
[2020-09-20] MEDS ORDERED: LABETALOL HCL IV 5 MG/ML 20ML IV PRN ×2 (11:30→17:30)
[2020-09-20] MEDS ORDERED: ONDANSETRON INJ 2 MG/ML 2 ML VIAL IV PRN ×2 (11:30→12:09)
--- NOTE | 2020-09-20 11:52 | Post Operative Brief Note ---
Immediate Post Op Note v1 Date of Surgery September 20, 2020 Pre & Post Diagnosis Operation Date: 09/20/20 11:00 Pre-Op Diagnosis: Left Hip Fracture Post-Op Diagnosis: Left Hip Fracture I identified the patient and participated in the time-out.: Yes Procedure Operation Date: 09/20/20 11:00 Actual Procedures p Left Hip Intramedullary Hip Nail(Left) - Sid Chambers MD Surgeon Sid Chambers MD Housekeeping Aide kaylan walters PA-c Estimated Blood Loss 50 Findings Consistent with Post-Op Diagnosis Drains Wang Catheter (Patient arrived to OR with wang intact)
--- NOTE | 2020-09-20 12:05 | Fluoroscopy Report ---
FL hip LT 2-3V HISTORY: 70 years-old Female LEFT HIP acute left hip pain COMPARISON: Left hip radiographs 09/19/2020 TECHNIQUE: 5 spot fluoroscopic images of the left hip were obtained utilizing 92.6 seconds fluoroscop y time FINDINGS: Status post placement of an intratrochanteric nail with medullary toby the distal cannulated screw fix ating the acute intertrochanteric fracture. There is improved alignment of the fracture with cortical step-off medially. IMPRESSION: Fluoroscopic assistance as above. ACT 112: Negative or not required by law. The above report was generated using voice recognition software. It may contain grammatical, syntax o r spelling errors. Electronically signed by: Hans Becerril M.D. 09/20/2020 12:04 PM
[2020-09-20] MEDS ORDERED: MAGNESIUM HYDROXIDE SUSP 30 ML UDC PO PRN (12:09)
[2020-09-20] MEDS ORDERED: bisacodyL 10 MG SUPP PR PRN (12:09)
[2020-09-20] MEDS ORDERED: HYDROmorphone INJ 0.5 MG/0.5 ML SYR IV PRN (12:09)
[2020-09-20] MEDS ORDERED: diphenhydrAMINE 50 MG/ML VIAL IV PRN (12:09)
[2020-09-20] MEDS ORDERED: oxyCODONE HCL IR 5 MG TAB (IMMEDIATE RELEASE) PO PRN (12:09)
--- NOTE | 2020-09-20 12:42 | Anesthesiology Progress Note ---
Date of Service September 20, 2020 Anesthesia Post Procedure Vital Signs Vital Signs: Temp Pulse Pulse Pulse Resp BP BP 09/20/20 12:33 95 H 19 09/20/20 12:23 96 H 20 09/20/20 12:13 96 H 20 09/20/20 12:03 37.1 C 97 H 16 154/90 H 09/20/20 08:28 36.7 C 95 H 18 181/105 H 09/20/20 07:09 100 H 09/20/20 05:19 91 H 20 09/20/20 03:21 36.6 C 95 H 18 09/20/20 00:53 09/19/20 23:59 183/101 H 09/19/20 22:45 96 H 09/19/20 22:36 36.7 C 95 H 18 09/19/20 22:35 36.7 C 95 H 18 09/19/20 22:00 93 H 20 155/108 H 09/19/20 21:30 97 H 23 196/118 H 09/19/20 21:00 96 H 22 192/122 H 09/19/20 20:48 96 H 20 187/123 H 09/19/20 20:04 122 H 190/120 H 09/19/20 20:00 113 H 19 190/120 H 09/19/20 19:30 112 H 24 171/122 H 09/19/20 19:00 109 H 20 09/19/20 18:43 110 H 18 221/137 H 09/19/20 18:13 36.9 C 107 H 18 234/139 H BP Pulse Ox Pulse Ox 09/20/20 12:33 161/94 H 100 09/20/20 12:23 173/111 H 100 09/20/20 12:13 162/96 H 100 09/20/20 12:03 97 09/20/20 08:28 195/111 H 97 09/20/20 07:09 09/20/20 05:19 98 09/20/20 03:21 166/97 H 98 09/20/20 00:53 155/93 H 09/19/20 23:59 09/19/20 22:45 09/19/20 22:36 188/102 H 98 98 09/19/20 22:35 188/102 H 98 09/19/20 22:00 97 09/19/20 21:30 93 07/31/21 21:00 93 09/19/20 20:48 93 09/19/20 20:04 09/19/20 20:00 93 09/19/20 19:30 94 09/19/20 19:00 94 09/19/20 18:43 93 09/19/20 18:13 95 Pain Intensity Left Hip: Pain Intensity: 1 Transfer of Care Handoff Completed per policy Notes Mental Status: alert / awake / arousable Patient Amnestic to Procedure: Yes Nausea / Vomiting: adequately controlled Pain: adequately controlled Airway Patency, RR, SpO2: stable & adequate BP & HR: stable & adequate Hydration State: stable & adequate Anesthetic Complications: no major complications apparent
[2020-09-20] MEDS: SODIUM CHLORIDE 0.9% 1000ML 1,000 ML IV SCH ×2 (13:35→23:30)
--- NOTE | 2020-09-20 16:03 | XRay Report ---
XR hip LT min 2V HISTORY: 70 years-old Female left hip surgery [total joint arthroplasty COMPARISON: 09/19/2020 TECHNIQUE: 2 views of the left hip FINDINGS: Status post placement of an intratrochanteric nail with medullary toby and distal cannulated screw fix ating the acute intertrochanteric fracture of the left femur. There is improved alignment with persis tent lateral displacement of approximately 7 mm. Lateral left hip skin pau are present along with expected postoperative soft tissue swelling and deep tissue air. No unexpected opaque foreign body. IMPRESSION: Improved alignment of the acute left proximal femoral fracture status post ORIF. ACT 112: Negative or not required by law. The above report was generated using voice recognition software. It may contain grammatical, syntax o r spelling errors. Electronically signed by: Hans Becerril M.D. 09/20/2020 4:01 PM
--- NOTE | 2020-09-20 16:10 | Operative Report (OR) ---
DATE OF OPERATION: 09/20/2020. PREOPERATIVE DIAGNOSIS: Left hip intertrochanteric hip fracture. POSTOPERATIVE DIAGNOSIS: Left hip intertrochanteric hip fracture. PROCEDURE: Left hip intramedullary nail for intertrochanteric hip fracture. SURGEON: Dani Chambers MD. FIELD ARTILLERY CANNONEER: Rama Cohen PA-C who was necessary for prepping, draping, retraction, exposure, hardwa re placement, closure and set up. ANESTHESIA: General. INDICATIONS: This is a 70-year-old female who sustained a displaced intertrochanteric hip fracture. She presents for intramedullary nailing. The risks and benefits have been discussed including, but not limited to, risk of infection, nerve in jury, stiffness, loss of motion, failure to improve, etc. Reasonable outcomes and options of treatmen t were discussed. An explanation of appropriate alternatives to the procedure that may be advantageou s were discussed and their risks and benefits, as well as the risks and benefits of not proceeding wi th treatment. I offered to answer any additional inquiries concerning the treatment involved. All the patients questions were answered. The patient is agreeable, understanding of the treatment plan and alternatives, and wishes to proceed with the treatment plan. DESCRIPTION OF PROCEDURE: The patient was placed on the fracture table and we performed closed reduc tion. This did result in adequate alignment of the fracture. Did a longitudinal incision approximat john 2 fingerbreadths above the greater trochanter. Dissection was carried down through the skin and subcutaneous tissue and sharply incised the fascia and the tip of the greater trochanter was identifi ed. I placed a wire for a Synthes TFN nail. This was placed into the intramedullary canal, was chec ked in multiple views of fluoroscopy, this was in good position. Once the guidewire was placed, I se lected a short Synthes TFN nail and this was placed over the ball-tipped guidewire. This was checked on multiple views of fluoroscopy. This was in good position. I then made an incision over the late ral aspect of the thigh and placed the guide for the helical blade. The fascial layer was incised an d the guide were placed down adjacent to the lateral cortex of the bone. I placed a guidewire in the center-center position and then I overdrilled by hand. I then selected a size 95 helical blade and this was gently impacted as well with good alignment and stability. The fracture was then slightly c ompressed. I made a longitudinal incision in the area for the distal interlocking screw and the guides were plac ed down to bone. I then drilled and measured the appropriate size screw and screw was placed. This resulted in excellent bite. Incisions were irrigated. Fascial layer was closed with 0 Vicryl, 2-0 V icryl was used in the subcutaneous tissue, pau were used on skin. I injected Marcaine local care at the conclusion of the procedure. Soft dressings were applied. The patient was sent to PACU in st able condition. Postoperative plan will be weightbearing as tolerated with approximately 3-4 weeks of prophylactic Lo venox beginning tomorrow. Job ID: [id number]
[2020-09-20] MEDS ORDERED: FERROUS GLUCONATE 324 MG TAB PO SCH (17:00)
--- NOTE | 2020-09-20 17:15 | Hospitalist Progress Note ---
Date of Service September 20, 2020 Assessment & Plan (1) Closed fracture of left hip: (2) Fall: (3) Hypertensive urgency: Plan: 70-year-old lady with PMH of RA on chronic prednisone 5 mg daily, chronic hyponatremia, HTN [says her SBP ranges around 150s at home], COPD, chronic left hallux valgus/left great toe bunion and ongoing tobacco use presented 09/19 with complaint of fall. She is being managed for the following: #. Closed fracture of left hip Per patient, she fell of stool while trying to reach down/slipped rather than feeling weak or loss of consciousness. She hit her left hip. She does not complain of any heart trauma/chest pain/shortness of breath/loss of consciousness. Orthopedic on board: 09/20 s/p Left hip intramedullary nail for intertrochanteric hip fracture. PT/OT, Pain management and anticoagulation per orthopedics Encourage incentive spirometry continue to monitor clinically. #. Hypertensive urgency Blood pressure at presentation 234/139. Blood pressure continuously elevated above SBP of 160s Likely secondary to pain from intertrochanteric fracture. We will resume her home medication, put in as needed IV medications for blood pressure control. Expect to come down with pain management status post surgery. #. Rheumatoid arthritis Continue with home dose of steroid #. Tobacco abuse and COPD And hyponatremia longstanding tobacco use of ~40 years COPD and Hyponatremia Stable, at baseline. We will order nicotine patch while inpatient #. Chronic steroid use Concern for steroid-induced diabetes, f/u A1c level Patient's daughter Ms. Mindy Del Real can be contacted at [phone]. Admission and Anticipated Discharge Date Admission Date: September 19, 2020 Subjective Patient was lying down in bed, in moderate distress, on NC O2 [2]L. Patient denies Headache, Dizziness, Fever, Chills, Sore throat, Cough, Chest pain, palpitations, SOB, Belly pain, pain/burning while passing urine. Last Bowel movement []. Pt's pain under control when not moving. Left leg rotated ext ernally. Pt complained of indigestion, will add tums. Physical Exam Physical Exam: GENERAL: Alert and oriented x3. NAD, on RA. HEENT: No pallor, no icterus. Pupils equal, round and reactive to light. Oral mucosa moist. NECK: No JVD, no neck masses. HEART: S1 and S2 heard. Regular rate and rhythm. No murmur, no gallop. RESPIRATORY SYSTEM: Normal AP diameter. No accessory muscle use. No wheezing, no crackles. ABDOMEN: Soft, bowel sounds present, nontender, no distention. CENTRAL NERVOUS SYSTEM: Alert and oriented x3. No facial droop. Speech is clear. Obeys simple commands. Moves extremities. EXTREMITIES: No edema, left leg exam short and externally rotated. Distal N-V status wnl. Results & Data Results & Data ([facility]) Vital Signs (Past 12 Hours) Vital Signs Temp Pulse Pulse Pulse Resp BP BP 09/20/20 16:17 37.0 C 96 H 18 134/78 09/20/20 14:00 36.6 C 87 18 135/82 09/20/20 13:20 36.4 C L 82 18 133/77 09/20/20 13:19 36.5 C 80 18 144/80 H 09/20/20 13:05 36.5 C 79 20 144/80 H 09/20/20 12:43 36.7 C 78 19 127/75 09/20/20 12:33 95 H 19 161/94 H 09/20/20 12:23 96 H 20 173/111 H 09/20/20 12:13 96 H 20 162/96 H 09/20/20 12:03 37.1 C 97 H 16 154/90 H 09/20/20 08:28 36.7 C 95 H 18 181/105 H 195/111 H 09/20/20 07:09 100 H 09/20/20 05:19 91 H 20 Pulse Ox 09/20/20 16:17 96 09/20/20 14:00 97 09/20/20 13:20 98 09/20/20 13:19 95 09/20/20 13:05 99 09/20/20 12:43 93 09/20/20 12:33 100 09/20/20 12:23 100 09/20/20 12:13 100 09/20/20 12:03 97 09/20/20 08:28 97 09/20/20 07:09 09/20/20 05:19 98
[2020-09-20] MEDS ORDERED: CALCIUM CARBONATE 500 MG CHEWABLE TAB PO PRN (17:30)
[2020-09-20] MEDS: ceFAZolin 1000MG 1,000 MG/7.5 ML SYR IV SCH (17:41)
[2020-09-20] MEDS: SIMVASTATIN 20 MG TAB PO SCH (20:27)
[2020-09-20] MEDS: SENNA 8.6 MG TAB PO SCH (20:27)
[2020-09-20] MEDS: DOCUSATE SODIUM 100 MG CAP PO SCH (20:27)
[2020-09-20] MEDS ORDERED: SODIUM CHLORIDE 0.9% 500 ML IV ONE (21:10)
[2020-09-20] MEDS ORDERED: MAGNESIUM SULFATE / D5W 1 GM/100 ML BAG IV ONE (21:11)
[2020-09-20 23:58] LABS: Magnesium 1.9 mg/dl (1.8-2.4)
[2020-09-21] MEDS: ceFAZolin 1000MG 1,000 MG/7.5 ML SYR IV SCH (01:10)
[2020-09-21 07:45] LABS: Estimated Average Glucose 117 mg/dl; Hemoglobin A1C 5.7 % (4.5-5.6)
[2020-09-21] MEDS: PANTOprazole 40 MG TAB PO SCH (08:04)
[2020-09-21] MEDS: predniSONE 5 MG TAB PO SCH (08:04)
[2020-09-21] MEDS: SERTRALINE HCL 100 MG TABLET PO SCH (08:04)
[2020-09-21] MEDS: DOCUSATE SODIUM 100 MG CAP PO SCH ×2 (08:05→20:03)
[2020-09-21] MEDS: lisinopril 20 MG TAB PO SCH (08:05)
[2020-09-21] MEDS: FERROUS SULFATE 325 MG TAB PO SCH ×2 (08:05→16:46)
[2020-09-21] MEDS: MULTIVITAMIN TAB PO SCH (08:06)
[2020-09-21] MEDS: ENOXAPARIN INJ 30 MG/0.3 ML SYR SQ SCH ×2 (08:06→20:03)
[2020-09-21] MEDS: NICOTINE 14 MG/24 HR PATCH TD SCH (08:07)
[2020-09-21 08:31] LABS: Hematocrit (blood only) 23.7 % (37-47); Mean Corpuscular Hemoglobin 30.1 pg (25-34); Mean Corpuscular Hgb Conc 33.8 g/dL (32-36); Mean Corpuscular Volume 89.1 fL (80-100); Mean Platelet Volume 8.7 fL (7.4-10.4); Platelet Count 190 K/uL (130-400); RDW Coefficient of Variation 13.4 % (11.5-14.5); RDW Standard Deviation 43.5 fL (36.4-46.3); Red Blood Count 2.66 M/uL (4.2-5.4); White Blood Count 8.89 K/uL (4.8-10.8)
[2020-09-21 08:59] LABS: BUN Creatinine Ratio 50.6 (10-20); Calcium 8.1 mg/dl (8.5-10.1); Est GFR (African American) 127.2 ml/min; Est GFR (Non-African American) 109.8 ml/min; Potassium 3.7 mmol/L (3.5-5.1)
--- NOTE | 2020-09-21 13:03 | Orthopedic Progress Note ---
Date of Service September 21, 2020 Assessment & Plan (1) Closed fracture of left hip: Plan: Postop day 1 status post left TFN PT/ OT protocols. Weightbearing as tolerated. DVT prophylaxis-enoxaparin, SCDs, VITO hose. Pain management as written. Acute blood loss anemia-transfuse as per medicine service. DC planning-patient is planning for senior living facility upon discharge. Admission and Anticipated Discharge Date Admission Date: September 19, 2020 Subjective Postop day 1 Patient sitting up in bed eating her lunch. No complaints today. States that her hip is feeling a little bit better after she had PT. Pain is currently controlled. Denies shortness of breath, chest pain, lightheadedness. Physical Exam Physical Exam: Dressings are clean, dry, and intact. Thigh is soft and nontender. Calves are soft nontender. Neurovascular intact. Toes are mobile. Results & Data ([facility]) Vital Signs (Past 12 Hours) Vital Signs Temp Pulse Pulse Pulse Resp BP BP 09/21/20 11:56 36.4 C L 107 H 16 133/77 09/21/20 11:36 09/21/20 08:23 36.8 C 109 H 16 117/74 09/21/20 07:50 109 H 09/21/20 06:16 110 H 158/79 H 09/21/20 03:06 36.7 C 100 H 20 127/79 Pulse Ox Pulse Ox Pulse Ox Pulse Ox 09/21/20 11:56 97 09/21/20 11:36 90 96 88 L 09/21/20 08:23 91 09/21/20 07:50 09/21/20 06:16 96 09/21/20 03:06 98 Laboratory Results Laboratory Results WBC 8.89 K/uL (4.8-10.8) 09/21/20 08:07 RBC 2.66 M/uL (4.2-5.4) L 09/21/20 08:07 Hgb 8.0 g/dL (12.0-16.0) L D 09/21/20 08:07 Hct 23.7 % (37-47) L 09/21/20 08:07 MCV 89.1 fL (80-100) 09/21/20 08:07 MCH 30.1 pg (25-34) 09/21/20 08:07 MCHC 33.8 g/dL (32-36) 09/21/20 08:07 RDW Std Deviation 43.5 fL (36.4-46.3) 09/21/20 08:07 RDW Coeff of Ninfa 13.4 % (11.5-14.5) 09/21/20 08:07 Plt Count 190 K/uL (130-400) 09/21/20 08:07 MPV 8.7 fL (7.4-10.4) 09/21/20 08:07 Immature Gran % (Auto) 0.2 % 09/20/20 06:40 Neut % (Auto) 80.7 % 09/20/20 06:40 Lymph % (Auto) 7.7 % 09/20/20 06:40 [place] % (Auto) 11.1 % 09/20/20 06:40 Eos % (Auto) 0.0 % 09/20/20 06:40 Baso % (Auto) 0.3 % 09/20/20 06:40 Neut # (Auto) 8.26 K/uL (1.4-6.5) H 09/20/20 06:40 Lymph # (Auto) 0.79 K/uL (1.2-3.4) L 09/20/20 06:40 [place] # (Auto) 1.14 K/uL (0.11-0.59) H 09/20/20 06:40 Eos # (Auto) 0.00 K/uL (0-0.5) 09/20/20 06:40 Baso # (Auto) 0.03 K/uL (0-0.2) 09/20/20 06:40 Immature Gran # (Auto) 0.02 K/uL (0.00-0.02) 09/20/20 06:40 PT 10.0 Seconds (9.0-12.0) 09/19/20 Unknown INR 1.0 (0.9-1.1) 09/19/20 Unknown APTT 24.8 Seconds (21.0-31.0) 09/19/20 Unknown PTT Ratio 0.9 09/19/20 Unknown Sodium 137 mmol/L (136-145) 09/21/20 08:07 Potassium 3.7 mmol/L (3.5-5.1) D 09/21/20 08:07 Chloride 106 mmol/L (98-107) 09/21/20 08:07 Carbon Dioxide 26 mmol/L (21-32) 09/21/20 08:07 Anion Gap 5.0 (3-11) 09/21/20 08:07 BUN 17 mg/dl (7-18) 09/21/20 08:07 Creatinine 0.34 mg/dl (0.6-1.2) L 09/21/20 08:07 Est Cr Clr Drug Dosing 102.0 ml/min 09/21/20 08:07 Est GFR ( Amer) 127.2 ml/min 09/21/20 08:07 Est GFR (Non-Af Amer) 109.8 ml/min 09/21/20 08:07 BUN/Creatinine Ratio 50.6 (10-20) H 09/21/20 08:07 Glucose 89 mg/dl (70-99) 09/21/20 08:07 Estimat Average Glucose 117 mg/dl 09/19/20 18:25 Hemoglobin A1c 5.7 % (4.5-5.6) H 09/19/20 18:25 Calcium 8.1 mg/dl (8.5-10.1) L 09/21/20 08:07 Magnesium 1.9 mg/dl (1.8-2.4) 09/20/20 06:40 Total Bilirubin 0.3 mg/dl (0.2-1) 09/19/20 Unknown AST 21 U/L (15-37) 09/19/20 Unknown ALT 20 U/L (12-78) 09/19/20 Unknown Alkaline Phosphatase 95 U/L (45-117) 09/19/20 Unknown Total Protein 7.1 gm/dl (6.4-8.2) 09/19/20 Unknown Albumin 3.4 gm/dl (3.4-5.0) 09/19/20 Unknown Globulin 3.7 gm/dl (2.5-4.0) 09/19/20 Unknown Albumin/Globulin Ratio 0.9 (0.9-2) 09/19/20 Unknown TSH 1.270 uIu/ml (0.300-4.500) 09/19/20 Unknown Urine Color Yellow 09/19/20 18:40 Urine Appearance Clear (Clear) 09/19/20 18:40 Urine pH 7.5 (4.5-7.5) 09/19/20 18:40 Ur Specific [place] 1.012 (1.000-1.030) 09/19/20 18:40 Urine Protein Trace (Negative) H 09/19/20 18:40 Urine Glucose (UA) Negative (Negative) 09/19/20 18:40 Urine Ketones Negative (Negative) 09/19/20 18:40 Urine Blood Trace (Negative) H 09/19/20 18:40 Urine Nitrite Negative (Negative) 09/19/20 18:40 Urine Bilirubin Negative (Negative) 09/19/20 18:40 Urine Urobilinogen Negative (Negative) 09/19/20 18:40 Ur Leukocyte Esterase Negative (Negative) 09/19/20 18:40 Urine WBC (Auto) 0 /hpf (0-5) 09/19/20 18:40 Urine RBC (Auto) 5-10 /hpf (0-4) H 09/19/20 18:40 U Hyaline Cast (Auto) 0 /lpf (0-5) 09/19/20 18:40 U Epithel Cells (Auto) 5-10 /lpf (0-5) H 09/19/20 18:40 Urine Bacteria (Auto) Negative (Negative) 09/19/20 18:40 COVID-19 Eval Order Covid19 at [facility] 09/19/20 18:26 SARS-CoV-2 (PCR) NEGATIVE (Negative) 09/19/20 18:26 Blood Type B Positive 09/19/20 18:51 Antibody Screen NEGATIVE 09/19/20 18:51 Impressions
[2020-09-21] MEDS: LEVALBUTEROL 1.25MG/0.5ML NEB INH PRN ×2 (16:05→19:22)
[2020-09-21] MEDS: IPRATROPIUM BROMIDE NEB SOLN 0.02% 2.5 ML VIAL INH PRN ×2 (16:05→19:22)
--- NOTE | 2020-09-21 17:17 | Hospitalist Progress Note ---
Date of Service September 21, 2020 Assessment & Plan (1) Closed fracture of left hip: (2) Fall: (3) Hypertensive urgency: Plan: 70-year-old lady with PMH of RA on chronic prednisone 5 mg daily, chronic hyponatremia, HTN [says her SBP ranges around 150s at home], COPD, chronic left hallux valgus/left great toe bunion and ongoing tobacco use presented 09/19 with complaint of fall. She is being managed for the following: #. Closed fracture of left hip Per patient, she fell of stool while trying to reach down/slipped rather than feeling weak or loss of consciousness. She hit her left hip. She does not complain of any heart trauma/chest pain/shortness of breath/loss of consciousness. Orthopedic on board: 09/20 s/p Left hip intramedullary nail for intertrochanteric hip fracture. PT/OT, Pain management and anticoagulation per orthopedics Encourage incentive spirometry continue to monitor clinically. #. Hypertensive urgency Blood pressure at presentation 234/139. Likely secondary to pain from intertroc hanteric fracture. Blood pressure under control today. c/w her home medication, put in as needed IV medications for blood pressure control. #. Rheumatoid arthritis Continue with home dose of steroid #. Tobacco abuse and COPD And hyponatremia longstanding tobacco use of ~40 years COPD and Hyponatremia Stable, at baseline. We will order nicotine patch while inpatient Pt advised on risks of continued smoking and its impact on health. Pt has previously tried stopping smoking around 10 years ago. #. Chronic steroid use Concern for steroid-induced diabetes, f/u A1c level Patient's daughter Ms. Mindy Del Real can be contacted at [phone]. Admission and Anticipated Discharge Date Admission Date: September 19, 2020 Subjective Patient was lying down in bed, in moderate distress, on NC O2 [1]L. Patient denies Headache, Dizziness, Fever, Chills, Sore throat, Cough, Chest pain, palpitations, SOB, Belly pain, pain/burning while passing urine. Hasn't moved BM or gas since after the surgery. Pt's pain under control . Pt doing okay. Physical Exam Physical Exam: GENERAL: Alert and oriented x3. NAD, on RA. HEENT: No pallor, no icterus. Pupils equal, round and reactive to light. Oral mucosa moist. NECK: No JVD, no neck masses. HEART: S1 and S2 heard. Regular rate and rhythm. No murmur, no gallop. RESPIRATORY SYSTEM: Normal AP diameter. No accessory muscle use. No wheezing, no crackles. Pt has barrel chest and decreased breath sounds b/l. ABDOMEN: Soft, bowel sounds present, nontender, no distention. CENTRAL NERVOUS SYSTEM: Alert and oriented x3. No facial droop. Speech is clear. Obeys simple commands. Moves extremities. EXTREMITIES: No edema, s/p left hip intramedullary nail for intertrochanteric hip fracture. Distal NV status WNL. good dorsalis pedis pulse. Results & Data Results & Data ([facility]) Vital Signs (Past 12 Hours) Vital Signs Temp Pulse Pulse Pulse Resp BP BP 09/21/20 16:12 111 H 20 09/21/20 16:02 37 C 113 H 16 110/64 09/21/20 15:46 110 H 09/21/20 11:56 36.4 C L 107 H 16 133/77 09/21/20 11:36 09/21/20 08:23 36.8 C 109 H 16 117/74 09/21/20 07:50 109 H 09/21/20 06:16 110 H 158/79 H Pulse Ox Pulse Ox Pulse Ox Pulse Ox 09/21/20 16:12 96 09/21/20 16:02 96 09/21/20 15:46 09/21/20 11:56 97 09/21/20 11:36 90 96 88 L 09/21/20 08:23 91 09/21/20 07:50 09/21/20 06:16 96
[2020-09-21] MEDS: SIMVASTATIN 20 MG TAB PO SCH (20:03)
[2020-09-21] MEDS: SENNA 8.6 MG TAB PO SCH (20:03)
[2020-09-22] MEDS: LEVALBUTEROL 1.25MG/0.5ML NEB INH PRN ×4 (07:10→19:50)
[2020-09-22] MEDS: IPRATROPIUM BROMIDE NEB SOLN 0.02% 2.5 ML VIAL INH PRN ×4 (07:10→19:50)
[2020-09-22 07:11] LABS: Hematocrit (blood only) 20.3 % (37-47); Hemoglobin 6.9 g/dL (12.0-16.0); Mean Corpuscular Hemoglobin 29.9 pg (25-34); Mean Corpuscular Volume 87.9 fL (80-100); Mean Platelet Volume 8.6 fL (7.4-10.4); Platelet Count 182 K/uL (130-400); RDW Coefficient of Variation 13.4 % (11.5-14.5); RDW Standard Deviation 43.3 fL (36.4-46.3); Red Blood Count 2.31 M/uL (4.2-5.4)
[2020-09-22] MEDS ORDERED: SODIUM CHLORIDE 0.9% 250 ML IV PRN (07:17)
[2020-09-22 07:37] LABS: BUN Creatinine Ratio 73.8 (10-20); Calcium 8.2 mg/dl (8.5-10.1); Creatinine Clr Calc Pharmacy 157.6 ml/min; Est GFR (African American) 146.8 ml/min; Est GFR (Non-African American) 126.7 ml/min; Magnesium 1.7 mg/dl (1.8-2.4); Phosphorus 2.2 mg/dl (2.5-4.9); Potassium 3.2 mmol/L (3.5-5.1)
[2020-09-22] MEDS ORDERED: POTASSIUM CHLORIDE CRTAB 20 MEQ TABCR PO STA ×2 (07:49→11:53)
[2020-09-22] MEDS: ENOXAPARIN INJ 30 MG/0.3 ML SYR SQ SCH (08:23)
[2020-09-22] MEDS: NICOTINE 14 MG/24 HR PATCH TD SCH (08:23)
[2020-09-22] MEDS: FERROUS SULFATE 325 MG TAB PO SCH ×2 (08:23→17:06)
[2020-09-22] MEDS: DOCUSATE SODIUM 100 MG CAP PO SCH ×2 (08:23→20:25)
[2020-09-22] MEDS: lisinopril 20 MG TAB PO SCH (08:23)
[2020-09-22] MEDS: MULTIVITAMIN TAB PO SCH (08:23)
[2020-09-22] MEDS: SERTRALINE HCL 100 MG TABLET PO SCH (08:24)
[2020-09-22] MEDS: PANTOprazole 40 MG TAB PO SCH (08:24)
[2020-09-22] MEDS: predniSONE 5 MG TAB PO SCH (08:24)
[2020-09-22] MEDS: POT PHOSPHATE MONOBASIC W/ SOD TAB PO SCH ×4 (11:45→20:25)
[2020-09-22] MEDS: MAGNESIUM OXIDE 400 MG TAB PO SCH (11:45)
--- NOTE | 2020-09-22 13:45 | Orthopedic Progress Note ---
Date of Service September 22, 2020 Assessment & Plan (1) Closed fracture of left hip: Plan: Postop day 2 status post left TFN PT/ OT protocols. Weightbearing as tolerated. DVT prophylaxis-enoxaparin, SCDs, VITO hose. Pain management as written. Acute blood loss anemia-transfuse as per medicine service. DC planning-patient is planning for fpc facility upon discharge. Admission and Anticipated Discharge Date Admission Date: September 19, 2020 Subjective Postop day 2 Patient sitting up in bed. She just finished eating her lunch. No complaints today. She is hoping to get up to her chair this afternoon and is anxious to start working with physical therapy today. Currently receiving blood. Hemoglobin dropped to 6.9. No complaints at this time. Physical Exam Physical Exam: Dressings are clean, dry, and intact. Thigh has some swelling but is consistent with surgery. Soft and nontender. Calves are soft nontender. Neurovascular intact. Toes are mobile. Results & Data ([facility]) Vital Signs (Past 12 Hours) Vital Signs Temp Pulse Pulse Resp BP BP Pulse Ox 09/22/20 13:03 36.8 C 109 H 16 129/78 09/22/20 12:03 37.2 C 114 H 20 129/75 96 09/22/20 11:14 112 H 20 96 09/22/20 11:03 36.9 C 112 H 20 129/78 97 09/22/20 10:33 36.7 C 115 H 20 111/68 99 09/22/20 10:18 36.4 C L 116 H 18 125/76 97 09/22/20 09:59 36.6 C 111 H 18 122/74 97 09/22/20 07:44 36.5 C 104 H 18 154/78 H 100 09/22/20 07:29 108 H 09/22/20 07:10 106 H 18 98 09/22/20 03:25 36.9 C 104 H 20 137/80 92 Laboratory Results 09/22/20 09/22/20 09/22/20 Range/Units 07:36 07:36 06:48 WBC (4.8-10.8) K/uL RBC (4.2-5.4) M/uL Hgb 6.9 L* (12.0-16.0) g/dL Hct (37-47) % MCV (80-100) fL MCH (25-34) pg MCHC (32-36) g/dL RDW Std Deviation (36.4-46.3) fL RDW Coeff of Ninfa (11.5-14.5) % Plt Count (130-400) K/uL MPV (7.4-10.4) fL Sodium 137 (136-145) mmol/L Potassium 3.2 L (3.5-5.1) mmol/L Chloride 105 (98-107) mmol/L Carbon Dioxide 29 (21-32) mmol/L Anion Gap 3.0 (3-11) BUN 16 (7-18) mg/dl Creatinine 0.22 L (0.6-1.2) mg/dl Est Cr Clr Drug Dosing 157.6 ml/min Est GFR ( Amer) 146.8 ml/min Est GFR (Non-Af Amer) 126.7 ml/min BUN/Creatinine Ratio 73.8 H (10-20) Glucose 86 (70-99) mg/dl Calcium 8.2 L (8.5-10.1) mg/dl Phosphorus 2.2 L (2.5-4.9) mg/dl Magnesium 1.7 L (1.8-2.4) mg/dl Blood Type B Positive Antibody Screen NEGATIVE Crossmatch See Detail 09/22/20 09/19/20 Range/Units 06:48 18:51 WBC 7.50 (4.8-10.8) K/uL RBC 2.31 L (4.2-5.4) M/uL Hgb 6.9 L* (12.0-16.0) g/dL Hct 20.3 L* (37-47) % MCV 87.9 (80-100) fL MCH 29.9 (25-34) pg MCHC 34.0 (32-36) g/dL RDW Std Deviation 43.3 (36.4-46.3) fL RDW Coeff of Ninfa 13.4 (11.5-14.5) % Plt Count 182 (130-400) K/uL MPV 8.6 (7.4-10.4) fL Sodium (136-145) mmol/L Potassium (3.5-5.1) mmol/L Chloride (98-107) mmol/L Carbon Dioxide (21-32) mmol/L Anion Gap (3-11) BUN (7-18) mg/dl Creatinine (0.6-1.2) mg/dl Est Cr Clr Drug Dosing ml/min Est GFR ( Amer) ml/min Est GFR (Non-Af Amer) ml/min BUN/Creatinine Ratio (10-20) Glucose (70-99) mg/dl Calcium (8.5-10.1) mg/dl Phosphorus (2.5-4.9) mg/dl Magnesium (1.8-2.4) mg/dl Blood Type Antibody Screen Crossmatch See Detail
--- NOTE | 2020-09-22 18:13 | Hospitalist Progress Note ---
Date of Service September 22, 2020 Assessment & Plan (1) Closed fracture of left hip: (2) Acute blood loss anemia (ABLA): (3) Fall: (4) Hypertensive urgency: Plan: 70-year-old lady with PMH of RA on chronic prednisone 5 mg daily, chronic hyponatremia, HTN [says her SBP ranges around 150-160s at home], COPD, chronic left hallux valgus/left great toe bunion and ongoing tobacco use presented 09/19 with complaint of fall. She is being managed for the following: #. Closed fracture of left hip Per patient, she fell off bar-stool while trying to reach down/slipped rather than feeling weak or loss of consciousness. She hit her left hip. She does not complain of any heart trauma/chest pain/shortness of breath/loss of consciousness. Orthopedic on board: 09/20 s/p Left hip intramedullary nail for intertrochanteric hip fracture. PT/OT, Pain management and anticoagulation per orthopedics Encourage incentive spirometry, patient daily encouraged at bedside continue to monitor clinically. #. Hypertensive urgency Blood pressure at presentation 234/139. Likely secondary to pain from intertrochanteric fracture. Blood pressure under control today. c/w her home medication, put in as needed IV medications for blood pressure control. #. Acute blood loss anemia likely 2/2 postoperative blood loss Hb dropped to 6.9 (admitting Hb 11.8). s/p 1 unit PRBC 09/22. Repeat Hb was 8.6 f/u Hb at 10-11 PM today and then tomorrow AM. Transfuse for Hb <8 #. Rheumatoid arthritis Continue with home dose of steroid #. Tobacco abuse and COPD And hyponatremia longstanding tobacco use of ~40 years COPD and Hyponatremia Stable, at baseline. c/w nicotine patch while inpatient Pt advised on risks of continued smoking and its impact on health. Pt has previously tried stopping smoking around 10 years ago. #. Chronic steroid use Concern for steroid-induced diabetes, f/u A1c level Replaced electrolytes today, f/u with electrolytes tomorrow. Patient's daughter Ms. Mindy Del Real can be contacted at [phone]. DISPOSITION: to [facility] ([facility]) upon discharge. Once her Hb is stable and she starts working with PT she can be DC'd to SNF unless new problems arise. In the interim, continue to monitor her daily hemoglobin. Admission and Anticipated Discharge Date Admission Date: September 19, 2020 Subjective Patient was lying down in bed, in moderate distress, on RA. Patient denies Headache, Dizziness, Fever, Chills, Sore throat, Cough, Chest pain, palpitations, SOB, Belly pain, pain/burning while passing urine. Hasn't moved BM or but has passed gas since after the surgery. Pt's pain under control . Pt doing okay. Physical Exam Physical Exam: GENERAL: Alert and oriented x3. NAD, on RA. HEENT: No pallor, no icterus. Pupils equal, round and reactive to light. Oral mucosa moist. NECK: No JVD, no neck masses. HEART: S1 and S2 heard. Regular rate and rhythm. No murmur, no gallop. RESPIRATORY SYSTEM: Normal AP diameter. No accessory muscle use. No wheezing, no crackles. Pt has barrel chest and decreased breath sounds b/l. ABDOMEN: Soft, bowel sounds present, nontender, no distention. CENTRAL NERVOUS SYSTEM: Alert and oriented x3. No facial droop. Speech is clear. Obeys simple commands. Moves extremities. EXTREMITIES: No edema, s/p left hip intramedullary nail for intertrochanteric hip fracture. Distal NV status WNL. good dorsalis pedis pulse. Results & Data Results & Data ([facility]) Vital Signs (Past 12 Hours) Vital Signs Temp Pulse Pulse Resp BP BP Pulse Ox 09/22/20 15:49 103 H 18 96 09/22/20 15:24 109 H 09/22/20 13:58 36.8 C 110 H 20 153/83 H 97 09/22/20 13:03 36.8 C 109 H 16 129/78 09/22/20 12:03 37.2 C 114 H 20 129/75 96 09/22/20 11:14 112 H 20 96 09/22/20 11:03 36.9 C 112 H 20 129/78 97 09/22/20 10:33 36.7 C 115 H 20 111/68 99 09/22/20 10:18 36.4 C L 116 H 18 125/76 97 09/22/20 09:59 36.6 C 111 H 18 122/74 97 09/22/20 07:44 36.5 C 104 H 18 154/78 H 100 09/22/20 07:29 108 H 08/03/21 07:10 106 H 18 98
[2020-09-22] MEDS: SENNA 8.6 MG TAB PO SCH (20:25)
[2020-09-22] MEDS: SIMVASTATIN 20 MG TAB PO SCH (20:25)
[2020-09-23] MEDS: lisinopril 10 MG TAB PO SCH ×2 (02:15→08:30)
[2020-09-23 06:58] LABS: BUN Creatinine Ratio 35.4 (10-20); Calcium 8.1 mg/dl (8.5-10.1); Creatinine Clr Calc Pharmacy 133.4 ml/min; Est GFR (Non-African American) 119.9 ml/min; Magnesium 1.9 mg/dl (1.8-2.4); Potassium 3.2 mmol/L (3.5-5.1)
[2020-09-23] MEDS: IPRATROPIUM BROMIDE NEB SOLN 0.02% 2.5 ML VIAL INH PRN ×2 (07:39→16:04)
[2020-09-23] MEDS: LEVALBUTEROL 1.25MG/0.5ML NEB INH PRN ×2 (07:39→16:04)
[2020-09-23] MEDS ORDERED: POTASSIUM CHLORIDE CRTAB 20 MEQ TABCR PO STA (07:44)
[2020-09-23] MEDS: DOCUSATE SODIUM 100 MG CAP PO SCH ×2 (08:25→21:18)
[2020-09-23] MEDS: FERROUS SULFATE 325 MG TAB PO SCH ×2 (08:28→17:18)
[2020-09-23] MEDS: MAGNESIUM OXIDE 400 MG TAB PO SCH (08:31)
[2020-09-23] MEDS: MULTIVITAMIN TAB PO SCH (08:31)
[2020-09-23] MEDS: NICOTINE 14 MG/24 HR PATCH TD SCH (08:31)
[2020-09-23] MEDS: PANTOprazole 40 MG TAB PO SCH (08:33)
[2020-09-23] MEDS: predniSONE 5 MG TAB PO SCH (08:34)
[2020-09-23] MEDS ORDERED: ENOXAPARIN INJ 30 MG/0.3 ML SYR SQ SCH (09:00)
[2020-09-23] MEDS ORDERED: ENOXAPARIN INJ 40 MG/0.4 ML SYR SQ SCH (09:00)
[2020-09-23] MEDS: SERTRALINE HCL 100 MG TABLET PO SCH (10:43)
--- NOTE | 2020-09-23 15:36 | Hospitalist Progress Note ---
Date of Service September 23, 2020 Assessment & Plan (1) Closed fracture of left hip: Plan: s/p L TFN, WBAT. Pain management as written. Daily Lovenox considered once hemoglobin is stable. She did receive a dose this morning. (2) Fall: Plan: PT/OT, transitioning to rehab (3) Hypertensive urgency: Plan: Likely related to uncontrolled pain. Now more controlled and BP is within goal. Cont lisinopril 30mg PO daily, a slight increase from her home dose. (4) Postoperative anemia due to acute blood loss: Plan: Hb stable s/p 1 unit of blood yesterday. Trend Hb in am to ensure stability prior to transfer to SNF. (5) Rheumatoid arthritis: Plan: chronic, stable. Continues on chronic daily prednisone. (6) Chronic steroid use: Plan: as above. (7) Tobacco use disorder: Plan: Nicoderm (8) COPD (chronic obstructive pulmonary disease): Plan: chronic, stable. Smoking cessation strongly advised. Cont combivent or bronchodilator neb treatments PRN sob/wheezing. (9) DVT prophylaxis: Plan: SCDs-hold Lovenox in setting of acute post-op anemia Full code dispo-to [facility] hopefully tomorrow. Daughter updated at bedside. Noemí [facility] and [facility]ticipated Discharge Date Admission Date: September 19, 2020 Subjective 70 yo F with L hip fracture s/p L hip nailing on 09/20 post op anemia s/p 1 Unit packed RBCs on 09/22 Hb 8.5 today and she is asymptomatic pain is well controlled on current medical therapy daughter is at bedside and we discussed discharge plan She will get the covid vaccination proof to [facility] Patient is tolerating PO Review of Systems Review of Systems: All systems were reviewed and negative except as indicated in HPI above. Physical Exam Physical Exam: CONSTITUTIONAL: elderly, frail, vitals as above, NAD EYES: normal conjunctivae, no scleral icterus ENT: external ear and nose normal, MMM RESPIRATORY: clear to auscultation bilaterally, no crackles, rales or wheezes, normal respiratory effort CARDIOVASCULAR: regular rate and rhythm, S1 and 2 heard without murmurs, gallops or rubs, no JVD, no peripheral edema GASTROINTESTINAL: soft, nontender, nondistended, no guarding MUSCULOSKELETAL: strength 5/5 throughout, head is normocephalic and atraumatic SKIN: warm and dry NEUROLOGIC: CN 2-12 grossly intact, normal cognition, normal speech, no tremor, no gross focal deficits. PSYCHIATRIC: alert cooperative and oriented to person, place and time. Euthymic mood, makes good eye contact, language grossly intact, recent and remote memory grossly intact. Results & Data Results & Data ([facility]) Vital Signs (Past 12 Hours) Vital Signs Temp Pulse Pulse Resp BP BP Pulse Ox 09/23/20 14:55 36.8 C 94 H 16 135/75 93 09/23/20 14:20 102 H 09/23/20 11:00 37.2 C 94 H 16 145/84 H 93 09/23/20 07:40 90 17 98 09/23/20 07:16 36.9 C 91 H 16 168/81 H 98 09/23/20 06:19 89 09/23/20 05:54 91 H 160/87 H 09/23/20 04:22 37.0 C 91 H 20 179/89 H 93 09/23/20 03:27 93 H 178/89 H Laboratory Results Short CBC 09/22/20 09/23/20 Range/Units 22:38 05:44 Hgb 8.2 L 8.5 L (12.0-16.0) g/dL BMP 09/23/20 05:44 Sodium 136 Potassium 3.2 L Chloride 103 Carbon Dioxide 30 BUN 9 D Creatinine 0.26 L Glucose 97 Calcium 8.1 L Medications Administered Current Inpatient Medications Acetaminophen (Acetaminophen 325 Mg Tab) 650 mg PO Q4H PRN PRN Reason: Pain or Fever Stop: 10/19/20 22:52 Last Admin: 09/21/20 19:36 Dose: 650 mg Documented by: Bisacodyl (Bisacodyl 10 Mg Supp) 10 mg PA DAILY PRN PRN Reason: Constipation Stop: 10/20/20 12:08 Calcium Carbonate (Calcium Carbonate 500 Mg Chewable Tab) 500 mg PO Q12H PRN PRN Reason: indigestion Stop: 10/20/20 17:29 Last Admin: 09/21/20 14:14 Dose: 500 mg Documented by: Diphenhydramine HCl (Diphenhydramine 50 Mg/Ml Vial) 25 mg IV Q8H PRN PRN Reason: Itching Stop: 10/20/20 12:08 Docusate Sodium (Docusate Sodium 100 Mg Cap) 100 mg PO BID [facility] Stop: 10/20/20 20:59 Last Admin: 09/23/20 08:25 Dose: 100 mg Documented by: Enoxaparin Sodium (Enoxaparin Inj 30 Mg/0.3 Ml Syr) 30 mg SQ QAM [facility] Stop: 10/23/20 08:59 Last Admin: 09/23/20 08:26 Dose: 30 mg Documented by: Ferrous Sulfate (Ferrous Sulfate 325 Mg Tab) 325 mg PO BID17 [facility] Stop: 10/20/20 08:59 Last Admin: 09/23/20 08:28 Dose: 325 mg Documented by: Hydromorphone HCl (Hydromorphone Inj 0.5 Mg/0.5 Ml Syr) 0.5 mg IV Q4H PRN PRN Reason: Pain or Pre PT Stop: 10/04/20 12:08 Promethazine HCl 6.25 mg/ (Sodium Chloride) 50.25 mls @ 201 mls/hr IV Q6H PRN PRN Reason: Nausea And Vomiting Stop: 10/19/20 22:52 Ipratropium [place] (Ipratropium [place] Neb Soln 0.02% 2.5 Ml Vial) 0.5 mg INH Q4H PRN PRN Reason: sob/wheezing Stop: 10/19/20 22:52 Last Admin: 09/23/20 07:39 Dose: 0.5 mg Documented by: Levalbuterol HCl (Levalbuterol 1.25mg/0.5ml Neb) 1.25 mg INH Q4H PRN PRN Reason: sob/wheezing Stop: 10/19/20 22:52 Last Admin: 09/23/20 07:39 Dose: 1.25 mg Documented by: Lisinopril (Lisinopril 10 Mg Tab) 30 mg PO QAM [facility] Stop: 10/23/20 01:59 Last Admin: 09/23/20 08:30 Dose: 30 mg Documented by: Magnesium Hydroxide (Magnesium Hydroxide Susp 30 Ml Udc) 30 ml PO Q6H PRN PRN Reason: Constipation Stop: 10/20/20 12:08 Magnesium Oxide (Magnesium Oxide 400 Mg Tab) 400 mg PO QAM [facility] Stop: 10/22/20 08:59 Last Admin: 09/23/20 08:31 Dose: 400 mg Documented by: Miscellaneous (Remove Nicoderm Patch) 1 ea N/A DAILY@0859 [facility] Stop: 10/21/20 08:58 Last Admin: 09/23/20 08:32 Dose: 1 ea Documented by: Multivitamins (Multivitamin Tab) 1 tab PO [facility] Stop: 10/21/20 08:59 Last Admin: 09/23/20 08:31 Dose: 1 tab Documented by: Naloxone HCl (Naloxone Hcl 0.4 Mg/1 Ml Vial/Carp) 0.1 mg IV Q5M PRN PRN Reason: Oversedation/Resp Depression Stop: 10/20/20 12:08 Nicotine (Nicotine 14 Mg/24 Hr Patch) 14 mg TD [facility] Stop: 10/21/20 08:59 Last Admin: 09/23/20 08:31 Dose: 14 mg Documented by: Ondansetron HCl (Ondansetron Inj 2 Mg/Ml 2 Ml Vial) 4 mg IV Q6H PRN PRN Reason: Nausea And Vomiting Stop: 10/20/20 12:08 Oxycodone HCl (Oxycodone Hcl Ir 5 Mg Tab (Immediate Release)) 5 - 10 mg PO Q4H PRN PRN Reason: Pain or Pre PT Stop: 10/04/20 12:08 Last Admin: 09/21/20 06:26 Dose: 5 mg Documented by: Pantoprazole Sodium (Pantoprazole 40 Mg Tab) 40 mg PO [facility] Stop: 09/24/20 09:01 Last Admin: 09/23/20 08:33 Dose: 40 mg Documented by: Prednisone (Prednisone 5 Mg Tab) 5 mg PO [facility] Stop: 10/20/20 08:59 Last Admin: 09/23/20 08:34 Dose: 5 mg Documented by: Sennosides (Senna 8.6 Mg Tab) 17.2 mg PO [facility] Stop: 10/20/20 20:59 Last Admin: 09/22/20 20:25 Dose: 17.2 mg Documented by: Sertraline HCl (Sertraline Hcl 100 Mg Tablet) 200 mg PO [facility] Stop: 10/20/20 08:59 Last Admin: 09/23/20 10:43 Dose: 200 mg Documented by: Simvastatin (Simvastatin 20 Mg Tab) 20 mg PO HS [facility] Stop: 10/20/20 20:59 Last Admin: 09/22/20 20:25 Dose: 20 mg Documented by:
[2020-09-23] MEDS: SIMVASTATIN 20 MG TAB PO SCH (21:17)
[2020-09-23] MEDS: SENNA 8.6 MG TAB PO SCH (21:18)
[2020-09-24 06:17] LABS: Hematocrit (blood only) 24.7 % (37-47); Hemoglobin 8.4 g/dL (12.0-16.0); Mean Corpuscular Hemoglobin 30.7 pg (25-34); Mean Corpuscular Volume 90.1 fL (80-100); Mean Platelet Volume 8.8 fL (7.4-10.4); Platelet Count 227 K/uL (130-400); RDW Coefficient of Variation 13.6 % (11.5-14.5); RDW Standard Deviation 44.3 fL (36.4-46.3); Red Blood Count 2.74 M/uL (4.2-5.4); White Blood Count 6.37 K/uL (4.8-10.8)
[2020-09-24 06:59] LABS: BUN Creatinine Ratio 41.3 (10-20); Calcium 8.2 mg/dl (8.5-10.1); Creatinine Clr Calc Pharmacy 128.4 ml/min; Est GFR (African American) 137.3 ml/min; Est GFR (Non-African American) 118.4 ml/min; Potassium 3.6 mmol/L (3.5-5.1)
[2020-09-24] MEDS: DOCUSATE SODIUM 100 MG CAP PO SCH (08:11)
[2020-09-24] MEDS: MULTIVITAMIN TAB PO SCH (08:12)
[2020-09-24] MEDS: SERTRALINE HCL 100 MG TABLET PO SCH (08:12)
[2020-09-24] MEDS: MAGNESIUM OXIDE 400 MG TAB PO SCH (08:12)
[2020-09-24] MEDS: FERROUS SULFATE 325 MG TAB PO SCH (08:12)
[2020-09-24] MEDS: predniSONE 5 MG TAB PO SCH (08:12)
[2020-09-24] MEDS: NICOTINE 14 MG/24 HR PATCH TD SCH (08:12)
[2020-09-24] MEDS: PANTOprazole 40 MG TAB PO SCH (08:12)
--- NOTE | 2020-09-24 11:39 | Discharge Summary ---
Date of Service September 24, 2020 Admission HPI Per Admitting Provider History obtained from patient, family, and records. Medical history significant for hypertension, COPD, rheumatoid arthritis on on chronic prednisone Rx, chronic hyponatremia, hyperlipidemia, chronic left hallux valgus/left great toe bunion, ongoing tobacco abuse. Patient was getting off her chair at home when she lost balance causing her to fall down on her left hip. Subsequent abrasion to left elbow. Achy left hip injury. Patient unable to get up. No head trauma, no chest pain, no S OB, no LOC. 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 Baseline Functionality : Still able to do housework at home without rest/exertional chest pain or unusual S OB prior to injury Admission Exam Per Admitting Provider GENERAL: uncomfortable, no respiratory distress SKIN: Normal color, warm HEENT: Noonday palpebral conjunctivae, no ptosis, dry buccal mucosa NECK : Supple, no tenderness CHEST : Decreased breath sounds, no tenderness HEART : RRR, no obvious murmurs ABDOMEN: no distention, nontender EXTREMITIES : Left hip tenderness, left hallux valgus with tender left bunion left great toe, no other conspicuous deformities noted NEUROLOGIC : Coherent, no facial asymmetry, no other gross focality Principal Diagnosis closed fracture of left hip s/p surgery fall Hypertensive urgency postoperative anemia due to acute blood loss s/p 1 unit blood rheumatoid arthritis on chronic prednisone tobacco use disorder Discharge Exam CONSTITUTIONAL: elderly, frail, vitals as above, NAD EYES: normal conjunctivae, no scleral icterus ENT: external ear and nose normal, MMM RESPIRATORY: clear to auscultation bilaterally, no crackles, rales or wheezes, normal respiratory effort CARDIOVASCULAR: regular rate and rhythm, S1 and 2 heard without murmurs, gallops or rubs, no JVD, no peripheral edema GASTROINTESTINAL: soft, nontender, nondistended, no guarding MUSCULOSKELETAL: strength 5/5 throughout, head is normocephalic and atraumatic SKIN: warm and dry NEUROLOGIC: CN 2-12 grossly intact, normal cognition, normal speech, no tremor, no gross focal deficits. PSYCHIATRIC: alert cooperative and oriented to person, place and time. Euthymic mood, makes good eye contact, language grossly intact, recent and remote memory grossly intact. Discharge Data Allergies Allergy/AdvReac Type Severity Reaction Status Date / Time tomato Allergy Mild Mouth Unverified 09/19/20 19:14 Fuzziness and Burning Consultations 09/19/20 19:54 ED Decision to Admit Stat 09/19/20 22:53 Consult Orthopedic Surgery Routine Procedures Performed Operation Date: 09/20/20 11:00 Actual Procedures p Left Hip Intramedullary Hip Nail(Left) - Sid Chambers MD Ordered Studies Laboratory Results WBC 6.37 K/uL (4.8-10.8) 09/24/20 05:55 RBC 2.74 M/uL (4.2-5.4) L 09/24/20 05:55 Hgb 8.4 g/dL (12.0-16.0) L 09/24/20 05:55 Hct 24.7 % (37-47) L 09/24/20 05:55 MCV 90.1 fL (80-100) 09/24/20 05:55 MCH 30.7 pg (25-34) 09/24/20 05:55 MCHC 34.0 g/dL (32-36) 09/24/20 05:55 RDW Std Deviation 44.3 fL (36.4-46.3) 09/24/20 05:55 RDW Coeff of Ninfa 13.6 % (11.5-14.5) 09/24/20 05:55 Plt Count 227 K/uL (130-400) 09/24/20 05:55 MPV 8.8 fL (7.4-10.4) 09/24/20 05:55 Immature Gran % (Auto) 0.2 % 09/20/20 06:40 Neut % (Auto) 80.7 % 09/20/20 06:40 Lymph % (Auto) 7.7 % 09/20/20 06:40 [place] % (Auto) 11.1 % 09/20/20 06:40 Eos % (Auto) 0.0 % 09/20/20 06:40 Baso % (Auto) 0.3 % 09/20/20 06:40 Neut # (Auto) 8.26 K/uL (1.4-6.5) H 09/20/20 06:40 Lymph # (Auto) 0.79 K/uL (1.2-3.4) L 09/20/20 06:40 Dundy # (Auto) 1.14 K/uL (0.11-0.59) H 09/20/20 06:40 Eos # (Auto) 0.00 K/uL (0-0.5) 09/20/20 06:40 Baso # (Auto) 0.03 K/uL (0-0.2) 09/20/20 06:40 Immature Gran # (Auto) 0.02 K/uL (0.00-0.02) 09/20/20 06:40 PT 10.0 Seconds (9.0-12.0) 09/19/20 Unknown INR 1.0 (0.9-1.1) 09/19/20 Unknown APTT 24.8 Seconds (21.0-31.0) 09/19/20 Unknown PTT Ratio 0.9 09/19/20 Unknown Sodium 136 mmol/L (136-145) 09/24/20 05:55 Potassium 3.6 mmol/L (3.5-5.1) 09/24/20 05:55 Chloride 103 mmol/L (98-107) 09/24/20 05:55 Carbon Dioxide 31 mmol/L (21-32) 09/24/20 05:55 Anion Gap 2.0 (3-11) L 09/24/20 05:55 BUN 11 mg/dl (7-18) 09/24/20 05:55 Creatinine 0.27 mg/dl (0.6-1.2) L 09/24/20 05:55 Est Cr Clr Drug Dosing 128.4 ml/min 09/24/20 05:55 Est GFR ( Amer) 137.3 ml/min 09/24/20 05:55 Est GFR (Non-Af Amer) 118.4 ml/min 09/24/20 05:55 BUN/Creatinine Ratio 41.3 (10-20) H 09/24/20 05:55 Glucose 94 mg/dl (70-99) 09/24/20 05:55 Estimat Average Glucose 117 mg/dl 09/19/20 18:25 Hemoglobin A1c 5.7 % (4.5-5.6) H 09/19/20 18:25 Calcium 8.2 mg/dl (8.5-10.1) L 09/24/20 05:55 Phosphorus 3.0 mg/dl (2.5-4.9) 09/23/20 05:44 Magnesium 1.9 mg/dl (1.8-2.4) 09/23/20 05:44 Total Bilirubin 0.3 mg/dl (0.2-1) 09/19/20 Unknown AST 21 U/L (15-37) 09/19/20 Unknown ALT 20 U/L (12-78) 09/19/20 Unknown Alkaline Phosphatase 95 U/L (45-117) 09/19/20 Unknown Total Protein 7.1 gm/dl (6.4-8.2) 09/19/20 Unknown Albumin 3.4 gm/dl (3.4-5.0) 09/19/20 Unknown Globulin 3.7 gm/dl (2.5-4.0) 09/19/20 Unknown Albumin/Globulin Ratio 0.9 (0.9-2) 09/19/20 Unknown TSH 1.270 uIu/ml (0.300-4.500) 09/19/20 Unknown Urine Color Yellow 09/19/20 18:40 Urine Appearance Clear (Clear) 09/19/20 18:40 Urine pH 7.5 (4.5-7.5) 09/19/20 18:40 Ur Specific [place] 1.012 (1.000-1.030) 09/19/20 18:40 Urine Protein Trace (Negative) H 09/19/20 18:40 Urine Glucose (UA) Negative (Negative) 09/19/20 18:40 Urine Ketones Negative (Negative) 09/19/20 18:40 Urine Blood Trace (Negative) H 09/19/20 18:40 Urine Nitrite Negative (Negative) 09/19/20 18:40 Urine Bilirubin Negative (Negative) 09/19/20 18:40 Urine Urobilinogen Negative (Negative) 09/19/20 18:40 Ur Leukocyte Esterase Negative (Negative) 09/19/20 18:40 Urine WBC (Auto) 0 /hpf (0-5) 09/19/20 18:40 Urine RBC (Auto) 5-10 /hpf (0-4) H 09/19/20 18:40 U Hyaline Cast (Auto) 0 /lpf (0-5) 09/19/20 18:40 U Epithel Cells (Auto) 5-10 /lpf (0-5) H 09/19/20 18:40 Urine Bacteria (Auto) Negative (Negative) 09/19/20 18:40 COVID-19 Eval Order Covid19 at [facility] 09/19/20 18:26 SARS-CoV-2 (PCR) NEGATIVE (Negative) 09/19/20 18:26 Blood Type B Positive 09/22/20 07:36 Antibody Screen NEGATIVE 09/22/20 07:36 Crossmatch See Detail 09/22/20 07:36 Impressions Chest X-Ray 09/19/20 17:56 SINGLE VIEW CHEST CLINICAL HISTORY: Fall. Left hip fracture. FINDINGS: An AP, portable, supine chest radiograph is obtained. No prior studies are available for comparison at the time of dictation. The cardiomediastinal silhouette is unremarkable noting atherosclerotic calcification of the thoracic aorta. Nonspecific interstitial thickening is likely chronic. No airspace consolidation or large pleural effusion is identified. No pneumothorax is seen. The skeletal structures are osteopenic. There are chronic/healed bilateral rib fractures. Degenerative change and scoliosis is noted in the thoracic spine. IMPRESSION: No acute cardiopulmonary abnormality. ACT 112: Negative or not required by law. Electronically signed by: Grant Roberto M.D. 09/19/2020 6:54 PM Hip X-Ray 09/20/20 14:41 XR hip LT min 2V HISTORY: 70 years-old Female left hip surgery [total joint arthroplasty COMPARISON: 09/19/2020 TECHNIQUE: 2 views of the left hip FINDINGS: Status post placement of an intratrochanteric nail with medullary toby and distal cannulated screw fixating the acute intertrochanteric fracture of the left femur. There is improved alignment with persistent lateral displacement of approximately 7 mm. Lateral left hip skin pau are present along with expected postoperative soft tissue swelling and deep tissue air. No unexpected opaque foreign body. IMPRESSION: Improved alignment of the acute left proximal femoral fracture status post ORIF. ACT 112: Negative or not required by law. The above report was generated using voice recognition software. It may contain grammatical, syntax or spelling errors. Electronically signed by: Hans Becerril M.D. 09/20/2020 4:01 PM Hospital Course (1) Closed fracture of left hip: s/p L TFN, WBAT. Not requiring Tylenol or oxy but will send some PRN pain. Lovenox recommended by ortho assuming H/H remains stable. (2) Fall: PT/OT, transitioning to rehab (3) Hypertensive urgency: resolved. Was on lisinopril 15mg PO daily and increased to 30mg PO daily. Will change to 10mg daily and close follow-up with primary care physician recommended in 1-2 weeks to recheck blood pressure and BMP. (4) Postoperative anemia due to acute blood loss: Hb stable s/p 1 unit of blood this admission. Post-transfusion H/H stable. (5) Rheumatoid arthritis: chronic, stable. Continues on chronic daily prednisone. (6) Chronic steroid use: as above. (7) Tobacco use disorder: Nicoderm (8) COPD (chronic obstructive pulmonary disease): chronic, stable. Smoking cessation strongly advised. Cont combivent or bronchodilator neb treatments PRN sob/wheezing. Total Time Total Time Spent Total Time Spent (In Minutes): 60 Discharge Plan Discharge Items Patient Disposition: Transfer [facility] Reason For Visit: HTN URH, L HIP FX Discharge Diagnosis: closed fracture of left hip s/p surgery fall Hypertensive urgency postoperative anemia due to acute blood loss s/p 1 unit blood rheumatoid arthritis on chronic prednisone tobacco use disorder Condition on Discharge: Good Activity: Per Instructions section Weightbearing: Left weightbearing Weightbearing Comment: as tolerated with walker Non-emergency contact: Primary Care Provider and Surgeon Call non-emergency contact if: you have any medication questions, your symptoms worsen, your pain is not controlled, your pain is worsening, your pain is unusual for you, your pain is concerning for you, your wound has increased redness, your wound has increased drainage and your wound pain has increased Follow-up/Referrals: Sid Chambers MD [Physician] - (Follow up with Dr Chambers in 10-14 days from the day of surgery for wound check. ) Ramona العراقي PA-C [Primary Care Provider] - Chloe Whaley CRNP [Nurse Practitioner] - (Follow up for Osteoporosis check up in 6 weeks.) Diet: Heart Healthy Addtl Attending Provider Instructions: Please take all medications as instructed on discharge list below. Your lisinopril was reduced to 10mg once daily to start /. A one week follow-up with your primary care provider is recommended for recheck of your blood pressure after this change and to consider BMP It was a pleasure taking care of you! Please call if you have any questions or problems. You can reach a [facility] hospitalist on duty at [facility] 24 hours a day by calling [phone]. Take care of yourself. Noemí Marks, DO [employer] Hospitalist Addtl Assistant Quality Manager Provider Instructions: [facility] DISCHARGE INSTRUCTIONS: HIP FRACTURE SELF CARE INSTRUCTIONS: A. You are to ambulate with a walker or crutches for approximately 6 weeks. B. You are WEIGHT BEARING TOLERATED on your operative lower extremity for at least 6 weeks. C. Wear low heeled shoes with non-slip soles D. Be sure that your floors are free of things that could trip you throw rugs, electrical cords, and small objects. Avoid wet and waxed floors, especially with crutches/walker/cane. E. Try to walk several times a day with rest periods between. F. You may shower 48 hours after surgery and get the incision area wet, but DO NOT soak or submerge incision area in water. (No baths, swimming pools, hot tubs ) G. You may have a large, band-aid like dressing over your incision (Aquacel). This will remain on your incision for 7 days, and then can be removed. You CAN shower with this on. If incision is leaking through the dressing, please call the office . H. Do NOT apply soap or any ointment/lotions directly over incision. I. You may use ice as needed to operative site. SPECIAL CARE INSTRUCTIONS: VERY IMPORTANT TO READ AND REVIEW A. You may be at risk for phlebitis or blood clots. a. Wear surgical stockings (VITO hose) for 2 weeks after surgery to improve circulation and reduce swelling. b. Take LOVENOX 30mg SQ Daily for 4 weeks or as directed. This is your blood thinner. B. There are a few signs you need to watch for after you are home. Call [facility] at [phone] if you experience any of the following: a. If you have a temperature of 101 degrees or higher. b. Sudden increase in pain in your hip not relieved by r est or pain medication. c. Any fluid or drainage from the incision; redness of the incision. d. Shortness of breath or chest pain. C. Call your physician if: a. Temperature is greater than 101 degrees (F). b. Pain is not relieved by prescribed pain medications. c. Increase drainage or redness from incision. d. Unanswered questions or concerns. D. Pain Medication: a. You will be prescribed pain medication upon discharg e that should last till your first post-operative appointment. b. If you experience nausea and/or skin rash, discontinue this medication and contact our office for an alternative medication. c. Caution- narcotic pain medication can cause constipation. FOLLOW UP VISIT: Please call [facility] at [phone] to schedule a follow up appointment 10-14 days from the date of your surgery date. Pending Studies at Discharge: No Stand-Alone Forms: My [facility] [employer] Skilled Items Patient informed of condition?: Yes DNR: No Discharge Level of Care: Skilled Communicable Disease: No Discharge Prognosis: Stable Lines: None Urinary Catheter: No Medications and DC Order Prescriptions: New enoxaparin [Lovenox] 30 mg/0.3 mL Syringe 30 mg subcut QAM Qty: 3 RF: 0 lisinopril 10 mg tablet 10 mg PO DAILY Qty: 30 RF: 0 oxycodone 5 mg Tablet 5 mg PO Q6H PRN (Reason: pain) Qty: 7 RF: 0 Continued sertraline 100 mg tablet 200 mg PO QAM RF: 0 prednisone 5 mg tablet 5 mg PO QAM RF: 0 albuterol sulfate [Ventolin HFA] 90 mcg/actuation HFA aerosol inhaler 2 puff INHALATION .Q4-6H RF: 0 ipratropium-albuterol 0.5 mg-3 mg(2.5 mg base)/3 mL Solution For Nebulization 3 ml INHALATION QID RF: 0 simvastatin 20 mg tablet 20 mg PO HS RF: 0 ferrous sulfate 325 mg (65 mg iron) Tablet 650 mg PO BID RF: 0 calcium polycarbophil [FiberCon] 625 mg Tablet 625 mg PO DAILY RF: 0 Combivent Respimat 20-100 mcg/actuation Mist 1 puff INHALATION Q6H RF: 0 Discontinued lisinopril 10 mg tablet 15 mg PO QAM RF: 0 ibuprofen 200 mg Tablet 200 mg PO Q6H PRN (Reason: Pain) RF: 0 Discharge Orders: Discharge Order (Routine); Ordered 09/24/20 Ordered By: Noemí Marks Admission Data Admit Date/Time: 09/19/20 21:26 Attending Provider: Noemí Marks Admit Provider: Jerome May Primary Care Provider: Ramona العراقي Other Providers: Jerome May ; Joni Branham ; Gato De La Torre ; Moises Gee ; Norah Ellis Thomas J ; Rama Irizarry ; Efrain Escalante ; Sid Chambers ; Jose Page Andrew J. ; Sid Gr ; Conner Correa ; Juan Winslow ; Scott Rosenberg ; Joe Blackwell ; Rama Kwan ; Sina Ziegler ; Johnie Rios ; Chloe Whaley ; Krzysztof Norris ; Sapphire Garvey Other Interventions: Discharge Summary Assessment (RN) Last Done: 09/24/20 10:24
== END 2020-09-24 15:30 | DRG 481 ==
LOC: ED 17:44 → SUATTDRO 21:26 → 2N 21:26